=== PATIENT | male | born 1930 | race African-American/Black ===

== ENCOUNTER 2017-09-09 13:09 | Inpatient (IN) | payer MEDICARE, OTHER ==
[~2017-09-09] VITALS: Ht 182.9 cm; Wt 165.0 kg
[~2017-09-09 13:09] MED LIST: ACET-66 PO; ALIS300T PO; ALLO100T PO; ASPI-825 PO; CARV12 PO; CHL25 PO; FOSI40TA2 PO; LORA10TA7 PO; MOME17N NASAL; OXYC-158 PO; ROSU10 PO
[2017-09-09 14:30] VITALS: BP 109/55
[2017-09-09 16:00] VITALS: BP 101/53
[2017-09-09] MEDS ORDERED: TEMAZEPAM 15 MG CAPSULE PO PRN (16:15)
[2017-09-09] MEDS ORDERED: OxyCODONE HCL/ACETAMINOPHEN 5-325 MG TABLET PO PRN (16:15)
[2017-09-09] MEDS ORDERED: INFLUENZA VIRUS VACCINE QVS 2017-18 (3YR+)/PF 60 MCG/0.5 ML SYRINGE IM ONE (16:30)
[2017-09-09] MEDS ORDERED: PNEUMOCOCCAL VACCINE POLYVALENT 0.5 ML VIAL [PPSV23] IM ONE (16:30)
[2017-09-09 20:30] VITALS: BP 123/62
[2017-09-09] MEDS: DOCUSATE SODIUM 100 MG CAPSULE PO SCH (20:33)
[2017-09-09] MEDS: DRONABINOL 2.5 MG CAPSULE PO SCH (20:33)
[2017-09-09] MEDS: CARVEDILOL 3.125 MG TABLET PO SCH (20:33)
[2017-09-09] MEDS: TraZODone HCL 50 MG TABLET PO SCH (20:33)
[2017-09-09] MEDS: SENNA 187 MG TABLET PO SCH (20:33)
[2017-09-09] MEDS: ACETAMINOPHEN 500 MG TABLET PO SCH (20:34)
[2017-09-09] MEDS: FLUTICASONE PROPIONATE 50 MCG/SPRAY 16 GM NASAL SPRAY NASAL SCH (20:34)
[2017-09-09] MEDS: OXYGEN THERAPY IH SCH (20:37)
[2017-09-09] MEDS: BUDESONIDE 0.5 MG/2 ML NEB SOLUTION NEB SCH (21:04)
[2017-09-10 00:05] VITALS: BP 106/52
[2017-09-10 04:07] LABS: APPEARANCE,URINE CLOUDY (CLEAR); GLUCOSE, URINE (UA) NEGATIVE (NEGATIVE); KETONES,URINE NEGATIVE (NEGATIVE); LEUKOCYTE ESTERASE ,URINE NEGATIVE (NEGATIVE); OCCULT BLOOD,URINE MODERATE (NEGATIVE); PH,URINE 5.5 (5.0-8.0); PROTEIN,URINE SEE CONFIRM (NEGATIVE)
[2017-09-10 04:34] LABS: COARSE GRANULAR CASTS,URINE 0-2 /LPF (None Seen); SQUAMOUS EPITHELIAL CELL,UR Rare /LPF (None Seen); SULFOSALICYLIC ACID,URINE 3+ (Negative); WBC,URINE 0-2 /HPF (0-5)
[2017-09-10 06:48] LABS: BASOPHILS % (AUTO) 0.1 % (0.0-2.0); EOSINOPHILS % (AUTO) 0.4 % (1.0-6.0); HEMATOCRIT 25.4 % (41-53); HEMOGLOBIN 8.3 g/dL (13.5-17.5); LYMPHOCYTES # (AUTO) 1.1 K/uL (1.0-4.8); LYMPHOCYTES % (AUTO) 7.4 % (22.0-44.0); MEAN CORPUSCULAR HEMOGLOBIN 28.8 pg (26.0-34.0); MEAN CORPUSCULAR HGB CONC 32.7 G/dL (31.0-37.0); MEAN CORPUSCULAR VOLUME 88 fL (80-100); MONOCYTES # (AUTO) 0.7 K/uL (0.1-1.0); MONOCYTES % (AUTO) 5.2 % (2.0-9.0); NEUTROPHILS # (AUTO) 12.6 K/uL (1.8-7.7); PLATELET COUNT (AUTO) 202 K/uL (150-450); RED BLOOD CELL COUNT(AUTO) 2.88 MIL/uL (4.50-5.90); RED CELL DISTRIBUTION WIDTH 20.5 % (11.5-14.5); WHITE BLOOD COUNT (AUTO) 14.5 K/uL (4.5-11.0)
[2017-09-10 07:05] LABS: ALANINE AMINOTRANSFERASE 109 U/L (12-78); ALBUMIN 1.6 g/dL (3.4-5.0); ANION GAP 9 mmol/L (8-16); ASPARTATE AMINOTRANSFERASE 50 U/L (15-37); BILIRUBIN,TOTAL 0.4 mg/dL (0.1-1.0); CALCIUM, TOTAL 8.6 mg/dL (8.8-10.5); CARBON DIOXIDE 27 mmol/L (22-29); CHLORIDE 109 mmol/L (98-107); CREATININE 1.16 mg/dL (0.60-1.30); GLOMERULAR FILTR. RATE CALC > 60 mL/min (>60); POTASSIUM 3.3 mmol/L (3.5-5.1); SODIUM SERUM 145 mmol/L (136-145); TOTAL PROTEIN, SERUM 7.9 g/dL (6.4-8.2); UREA NITROGEN, BLOOD 23 mg/dL (7-18)
[2017-09-10 07:07] LABS: NEUTROPHILS % (AUTO) 86.9 % (40.0-70.0)
[2017-09-10 07:42] VITALS: BP_SYST 14; BP_SYST 146; BP_DIAS 70
[2017-09-10] MEDS ORDERED: POTASSIUM CHLORIDE 20 MEQ ER TABLET PO ONE (08:15)
[2017-09-10 08:24] LABS: RBC MORPHOLOGY COMMENT ABNORMAL RBC MORPH
[2017-09-10] MEDS: OXYGEN THERAPY IH SCH ×2 (08:30→20:01)
[2017-09-10] MEDS: DOCUSATE SODIUM 100 MG CAPSULE PO SCH ×2 (08:30→20:36)
[2017-09-10] MEDS: CARVEDILOL 3.125 MG TABLET PO SCH ×2 (08:30→20:37)
[2017-09-10] MEDS: DRONABINOL 2.5 MG CAPSULE PO SCH ×2 (08:30→20:37)
[2017-09-10] MEDS: FERROUS SULFATE 325 MG EC TABLET PO SCH (08:30)
[2017-09-10] MEDS: FLUTICASONE PROPIONATE 50 MCG/SPRAY 16 GM NASAL SPRAY NASAL SCH ×2 (08:30→20:35)
[2017-09-10] MEDS: PANTOPRAZOLE SODIUM 40 MG DR TABLET PO SCH (08:30)
[2017-09-10] MEDS: ACETAMINOPHEN 500 MG TABLET PO SCH ×2 (08:30→08:46)
[2017-09-10] MEDS ORDERED: POTASSIUM CHLORIDE 10% 40 MEQ/30 ML LIQUID UDCUP PO ONE (08:45)
[2017-09-10] MEDS: BUDESONIDE 0.5 MG/2 ML NEB SOLUTION NEB SCH ×2 (09:00→20:48)
[2017-09-10] MEDS ORDERED: ACETAMINOPHEN 500 MG TABLET PO PRN (15:00)
[2017-09-10 15:30] VITALS: BP 119/56
[2017-09-10 19:55] VITALS: BP 119/57
[2017-09-10] MEDS: SENNA 187 MG TABLET PO SCH (20:36)
[2017-09-10] MEDS: TraZODone HCL 50 MG TABLET PO SCH (20:37)
[2017-09-11 01:31] VITALS: BP 107/57
[2017-09-11 05:34] LABS: ANION GAP 7 mmol/L (8-16); CALCIUM, TOTAL 8.7 mg/dL (8.8-10.5); CARBON DIOXIDE 27 mmol/L (22-29); CHLORIDE 111 mmol/L (98-107); CREATININE 1.28 mg/dL (0.60-1.30); GLOMERULAR FILTR. RATE CALC > 60 mL/min (>60); POTASSIUM 3.4 mmol/L (3.5-5.1); SODIUM SERUM 145 mmol/L (136-145); UREA NITROGEN, BLOOD 24 mg/dL (7-18)
[2017-09-11 07:45] VITALS: BP 115/61
[2017-09-11] MEDS: BUDESONIDE 0.5 MG/2 ML NEB SOLUTION NEB SCH ×2 (08:11→20:40)
[2017-09-11] MEDS: FERROUS SULFATE 325 MG EC TABLET PO SCH (09:54)
[2017-09-11] MEDS: DOCUSATE SODIUM 100 MG CAPSULE PO SCH ×2 (09:55→20:16)
[2017-09-11] MEDS: CARVEDILOL 3.125 MG TABLET PO SCH ×2 (09:55→20:16)
[2017-09-11] MEDS: OXYGEN THERAPY IH SCH ×2 (09:55→20:15)
[2017-09-11] MEDS: FLUTICASONE PROPIONATE 50 MCG/SPRAY 16 GM NASAL SPRAY NASAL SCH ×2 (09:55→20:15)
[2017-09-11] MEDS: PANTOPRAZOLE SODIUM 40 MG DR TABLET PO SCH (09:55)
[2017-09-11] MEDS: DRONABINOL 2.5 MG CAPSULE PO SCH ×2 (09:56→20:16)
[2017-09-11] MEDS ORDERED: POTASSIUM CHLORIDE 10% 40 MEQ/30 ML LIQUID UDCUP PO ONE (10:30)
[2017-09-11] MEDS ORDERED: POTASSIUM CHLORIDE 20 MEQ ER TABLET PO ONE (11:30)
[2017-09-11 15:20] VITALS: BP 112/56
[2017-09-11 20:14] VITALS: BP 112/56
[2017-09-11] MEDS: TraZODone HCL 50 MG TABLET PO SCH (20:16)
[2017-09-11] MEDS: SENNA 187 MG TABLET PO SCH (20:16)
[2017-09-11 23:36] VITALS: BP 105/52
[2017-09-12 07:05] LABS: BASOPHILS % (AUTO) 0.1 % (0.0-2.0); EOSINOPHILS % (AUTO) 0.4 % (1.0-6.0); HEMOGLOBIN 7.4 g/dL (13.5-17.5); LYMPHOCYTES % (AUTO) 7.5 % (22.0-44.0); MEAN CORPUSCULAR HEMOGLOBIN 28.2 pg (26.0-34.0); MEAN CORPUSCULAR VOLUME 88 fL (80-100); MONOCYTES # (AUTO) 0.6 K/uL (0.1-1.0); NEUTROPHILS # (AUTO) 12.1 K/uL (1.8-7.7); PLATELET COUNT (AUTO) 179 K/uL (150-450); RED BLOOD CELL COUNT(AUTO) 2.62 MIL/uL (4.50-5.90); RED CELL DISTRIBUTION WIDTH 20.3 % (11.5-14.5); WHITE BLOOD COUNT (AUTO) 13.8 K/uL (4.5-11.0)
[2017-09-12 07:15] LABS: RBC MORPHOLOGY COMMENT ABNORMAL RBC MORPH
[2017-09-12 07:37] LABS: ALANINE AMINOTRANSFERASE 53 U/L (12-78); ALBUMIN 1.5 g/dL (3.4-5.0); ANION GAP 8 mmol/L (8-16); ASPARTATE AMINOTRANSFERASE 21 U/L (15-37); BILIRUBIN,TOTAL 0.3 mg/dL (0.1-1.0); CALCIUM, TOTAL 8.5 mg/dL (8.8-10.5); CARBON DIOXIDE 26 mmol/L (22-29); CHLORIDE 111 mmol/L (98-107); CREATININE 1.19 mg/dL (0.60-1.30); GLOMERULAR FILTR. RATE CALC > 60 mL/min (>60); SODIUM SERUM 145 mmol/L (136-145); TOTAL PROTEIN, SERUM 7.3 g/dL (6.4-8.2); UREA NITROGEN, BLOOD 21 mg/dL (7-18)
[2017-09-12 07:42] VITALS: BP 128/62
[2017-09-12] MEDS: FERROUS SULFATE 325 MG EC TABLET PO SCH (08:18)
[2017-09-12] MEDS: OXYGEN THERAPY IH SCH ×2 (08:18→20:18)
[2017-09-12] MEDS: DRONABINOL 2.5 MG CAPSULE PO SCH ×2 (08:38→20:16)
[2017-09-12] MEDS: DOCUSATE SODIUM 100 MG CAPSULE PO SCH ×2 (08:38→20:15)
[2017-09-12] MEDS: FLUTICASONE PROPIONATE 50 MCG/SPRAY 16 GM NASAL SPRAY NASAL SCH ×2 (08:38→20:18)
[2017-09-12] MEDS: PANTOPRAZOLE SODIUM 40 MG DR TABLET PO SCH (08:38)
[2017-09-12] MEDS: CARVEDILOL 3.125 MG TABLET PO SCH ×2 (08:38→20:15)
[2017-09-12] MEDS: BUDESONIDE 0.5 MG/2 ML NEB SOLUTION NEB SCH ×2 (09:19→21:00)
[2017-09-12] MEDS ORDERED: POTASSIUM CHLORIDE 20 MEQ ER TABLET PO PRN (10:30)
[2017-09-12] MEDS ORDERED: POTASSIUM CHL 10 MEQ/WATER 50 ML IV PRN (10:30)
[2017-09-12] MEDS: EPOETIN ALFA 10,000 UNITS/ML VIAL SQ SCH (12:14)
[2017-09-12 15:21] VITALS: BP 114/64
[2017-09-12] MEDS ORDERED: POTASSIUM CHLORIDE 10 MEQ ER TABLET PO ONE (19:30)
[2017-09-12 20:15] VITALS: BP 122/69
[2017-09-12] MEDS: SENNA 187 MG TABLET PO SCH (20:15)
[2017-09-12] MEDS: MIRTAZAPINE 15 MG TABLET PO SCH (20:17)
[2017-09-12 23:43] VITALS: BP 133/62
[2017-09-13 07:31] VITALS: BP 145/62
[2017-09-13] MEDS: BUDESONIDE 0.5 MG/2 ML NEB SOLUTION NEB SCH ×2 (09:00→21:31)
[2017-09-13] MEDS: FLUTICASONE PROPIONATE 50 MCG/SPRAY 16 GM NASAL SPRAY NASAL SCH ×2 (09:09→20:15)
[2017-09-13] MEDS: PANTOPRAZOLE SODIUM 40 MG DR TABLET PO SCH (09:09)
[2017-09-13] MEDS: ALLOPURINOL 100 MG TABLET PO SCH (09:09)
[2017-09-13] MEDS: DRONABINOL 2.5 MG CAPSULE PO SCH ×2 (09:10→20:16)
[2017-09-13] MEDS: DOCUSATE SODIUM 100 MG CAPSULE PO SCH ×2 (09:13→20:16)
[2017-09-13] MEDS: OXYGEN THERAPY IH SCH ×2 (09:14→20:15)
[2017-09-13] MEDS: CARVEDILOL 3.125 MG TABLET PO SCH ×2 (09:14→20:16)
[2017-09-13] MEDS: FERROUS SULFATE 325 MG EC TABLET PO SCH (09:14)
[2017-09-13] MEDS ORDERED: POTASSIUM CHLORIDE 20 MEQ ER TABLET PO ONE (09:30)
[2017-09-13 15:18] VITALS: BP 105/49
[2017-09-13 20:15] VITALS: BP 127/63
[2017-09-13] MEDS: MIRTAZAPINE 15 MG TABLET PO SCH (20:16)
[2017-09-13] MEDS: SENNA 187 MG TABLET PO SCH (20:16)
[2017-09-14 03:05] VITALS: BP 132/68
[2017-09-14 07:04] VITALS: BP 129/67
[2017-09-14] MEDS: OXYGEN THERAPY IH SCH ×2 (08:42→20:02)
[2017-09-14] MEDS: FERROUS SULFATE 325 MG EC TABLET PO SCH (08:42)
[2017-09-14] MEDS: DOCUSATE SODIUM 100 MG CAPSULE PO SCH ×2 (08:43→20:50)
[2017-09-14] MEDS: DRONABINOL 2.5 MG CAPSULE PO SCH ×2 (08:43→20:50)
[2017-09-14] MEDS: FLUTICASONE PROPIONATE 50 MCG/SPRAY 16 GM NASAL SPRAY NASAL SCH ×2 (08:43→20:52)
[2017-09-14] MEDS: ALLOPURINOL 100 MG TABLET PO SCH (08:43)
[2017-09-14] MEDS: PANTOPRAZOLE SODIUM 40 MG DR TABLET PO SCH (08:44)
[2017-09-14] MEDS: CARVEDILOL 3.125 MG TABLET PO SCH ×2 (08:44→20:51)
[2017-09-14] MEDS: EPOETIN ALFA 10,000 UNITS/ML VIAL SQ SCH (08:45)
[2017-09-14] MEDS: BUDESONIDE 0.5 MG/2 ML NEB SOLUTION NEB SCH ×2 (10:59→21:26)
[2017-09-14 15:00] VITALS: BP 113/58
[2017-09-14 20:17] VITALS: BP 127/62
[2017-09-14] MEDS: SENNA 187 MG TABLET PO SCH (20:51)
[2017-09-14] MEDS: MIRTAZAPINE 15 MG TABLET PO SCH (20:51)
[2017-09-15] VITALS: BP 132/70
[2017-09-15 07:15] VITALS: BP 142/72
[2017-09-15] MEDS: FERROUS SULFATE 325 MG EC TABLET PO SCH (08:21)
[2017-09-15] MEDS: OXYGEN THERAPY IH SCH ×2 (08:21→20:46)
[2017-09-15] MEDS: FLUTICASONE PROPIONATE 50 MCG/SPRAY 16 GM NASAL SPRAY NASAL SCH ×2 (08:46→21:14)
[2017-09-15] MEDS: ALLOPURINOL 100 MG TABLET PO SCH (08:46)
[2017-09-15] MEDS: POLYETHYLENE GLYCOL 3350 17 GM PACKET PO SCH (08:46)
[2017-09-15] MEDS: PANTOPRAZOLE SODIUM 40 MG DR TABLET PO SCH (08:47)
[2017-09-15] MEDS: CARVEDILOL 3.125 MG TABLET PO SCH ×2 (08:47→21:10)
[2017-09-15] MEDS: DRONABINOL 2.5 MG CAPSULE PO SCH ×2 (08:47→21:11)
[2017-09-15] MEDS: DOCUSATE SODIUM 100 MG CAPSULE PO SCH ×2 (08:47→21:10)
[2017-09-15] MEDS: BUDESONIDE 0.5 MG/2 ML NEB SOLUTION NEB SCH ×2 (08:56→21:36)
[2017-09-15] MEDS ORDERED: POTASSIUM CHLORIDE 20 MEQ ER TABLET PO ONE (09:00)
[2017-09-15 15:27] VITALS: BP 123/53
[2017-09-15 21:07] VITALS: BP 120/63
[2017-09-15] MEDS: SENNA 187 MG TABLET PO SCH (21:11)
[2017-09-15] MEDS: MIRTAZAPINE 15 MG TABLET PO SCH (21:14)
[2017-09-15 23:35] VITALS: BP 121/67
[2017-09-16 07:14] VITALS: BP 126/63
[2017-09-16 07:36] LABS: EOSINOPHILS % (AUTO) 0.8 % (1.0-6.0); HEMATOCRIT 25.6 % (41-53); HEMOGLOBIN 8.3 g/dL (13.5-17.5); LYMPHOCYTES # (AUTO) 1.1 K/uL (1.0-4.8); LYMPHOCYTES % (AUTO) 6.1 % (22.0-44.0); MEAN CORPUSCULAR HGB CONC 32.3 G/dL (31.0-37.0); MEAN CORPUSCULAR VOLUME 90 fL (80-100); MONOCYTES # (AUTO) 0.8 K/uL (0.1-1.0); MONOCYTES % (AUTO) 4.2 % (2.0-9.0); NEUTROPHILS # (AUTO) 16.3 K/uL (1.8-7.7); PLATELET COUNT (AUTO) 168 K/uL (150-450); RED BLOOD CELL COUNT(AUTO) 2.86 MIL/uL (4.50-5.90); RED CELL DISTRIBUTION WIDTH 21.8 % (11.5-14.5); WHITE BLOOD COUNT (AUTO) 18.4 K/uL (4.5-11.0)
[2017-09-16 07:42] LABS: NEUTROPHILS % (AUTO) 88.9 % (40.0-70.0)
[2017-09-16 07:49] LABS: ALANINE AMINOTRANSFERASE 25 U/L (12-78); ALBUMIN 1.8 g/dL (3.4-5.0); ANION GAP 9 mmol/L (8-16); ASPARTATE AMINOTRANSFERASE 15 U/L (15-37); BILIRUBIN,TOTAL 0.4 mg/dL (0.1-1.0); CALCIUM, TOTAL 8.8 mg/dL (8.8-10.5); CARBON DIOXIDE 26 mmol/L (22-29); CHLORIDE 110 mmol/L (98-107); CREATININE 1.19 mg/dL (0.60-1.30); GLOMERULAR FILTR. RATE CALC > 60 mL/min (>60); SODIUM SERUM 145 mmol/L (136-145); TOTAL PROTEIN, SERUM 7.5 g/dL (6.4-8.2); UREA NITROGEN, BLOOD 17 mg/dL (7-18)
[2017-09-16 07:50] LABS: POTASSIUM 2.6 mmol/L (3.5-5.1)
[2017-09-16 07:58] LABS: RBC MORPHOLOGY COMMENT DIMORPHIC RBC
[2017-09-16] MEDS: FERROUS SULFATE 325 MG EC TABLET PO SCH (08:44)
[2017-09-16] MEDS: OXYGEN THERAPY IH SCH ×2 (08:44→20:54)
[2017-09-16] MEDS: CARVEDILOL 3.125 MG TABLET PO SCH ×2 (08:45→21:36)
[2017-09-16] MEDS: DOCUSATE SODIUM 100 MG CAPSULE PO SCH ×2 (08:45→21:37)
[2017-09-16] MEDS: FLUTICASONE PROPIONATE 50 MCG/SPRAY 16 GM NASAL SPRAY NASAL SCH ×2 (08:45→21:37)
[2017-09-16] MEDS: ALLOPURINOL 100 MG TABLET PO SCH (08:45)
[2017-09-16] MEDS: POTASSIUM CHLORIDE 20 MEQ ER TABLET PO SCH (08:45)
[2017-09-16] MEDS: PANTOPRAZOLE SODIUM 40 MG DR TABLET PO SCH (08:45)
[2017-09-16] MEDS: EPOETIN ALFA 10,000 UNITS/ML VIAL SQ SCH (08:46)
[2017-09-16] MEDS: POLYETHYLENE GLYCOL 3350 17 GM PACKET PO SCH (08:46)
[2017-09-16] MEDS: DRONABINOL 2.5 MG CAPSULE PO SCH ×2 (08:47→21:36)
[2017-09-16] MEDS: BUDESONIDE 0.5 MG/2 ML NEB SOLUTION NEB SCH ×2 (09:00→22:03)
[2017-09-16] MEDS ORDERED: POTASSIUM CHLORIDE 20 MEQ ER TABLET PO SCH (09:00)
[2017-09-16 16:53] VITALS: BP 109/53
[2017-09-16] MEDS: LEVOFLOXACIN 500 MG TABLET PO SCH (17:10)
[2017-09-16] MEDS ORDERED: POTASSIUM CHLORIDE 20 MEQ ER TABLET PO ONE ×2 (17:45)
[2017-09-16 21:34] VITALS: BP 128/66
[2017-09-16] MEDS: SENNA 187 MG TABLET PO SCH (21:36)
[2017-09-16] MEDS: MIRTAZAPINE 15 MG TABLET PO SCH (21:37)
[2017-09-16] MEDS ORDERED: 0.9% SODIUM CHLORIDE 5 ML NEB SOLUTION NEB ONE (21:55)
[2017-09-16 23:59] VITALS: BP 111/57
[2017-09-17 07:07] VITALS: BP 135/67
[2017-09-17 07:17] LABS: HEMOGLOBIN 8.1 g/dL (13.5-17.5); LYMPHOCYTES # (AUTO) 1.2 K/uL (1.0-4.8); LYMPHOCYTES % (AUTO) 7.3 % (22.0-44.0); MEAN CORPUSCULAR HEMOGLOBIN 29.1 pg (26.0-34.0); MEAN CORPUSCULAR HGB CONC 32.2 G/dL (31.0-37.0); MEAN CORPUSCULAR VOLUME 90 fL (80-100); MONOCYTES # (AUTO) 0.7 K/uL (0.1-1.0); MONOCYTES % (AUTO) 4.1 % (2.0-9.0); NEUTROPHILS # (AUTO) 14.9 K/uL (1.8-7.7); PLATELET COUNT (AUTO) 149 K/uL (150-450); RED BLOOD CELL COUNT(AUTO) 2.77 MIL/uL (4.50-5.90); RED CELL DISTRIBUTION WIDTH 22.2 % (11.5-14.5)
[2017-09-17 07:18] LABS: NEUTROPHILS % (AUTO) 87.6 % (40.0-70.0)
[2017-09-17 07:24] LABS: ANION GAP 6 mmol/L (8-16); CALCIUM, TOTAL 8.8 mg/dL (8.8-10.5); CARBON DIOXIDE 28 mmol/L (22-29); CHLORIDE 112 mmol/L (98-107); CREATININE 1.34 mg/dL (0.60-1.30); GLOMERULAR FILTR. RATE CALC > 60 mL/min (>60); SODIUM SERUM 146 mmol/L (136-145); UREA NITROGEN, BLOOD 15 mg/dL (7-18)
[2017-09-17] MEDS: FERROUS SULFATE 325 MG EC TABLET PO SCH (07:38)
[2017-09-17] MEDS: OXYGEN THERAPY IH SCH ×2 (07:38→20:39)
[2017-09-17 07:46] LABS: POTASSIUM 2.8 mmol/L (3.5-5.1)
[2017-09-17] MEDS: POTASSIUM CHLORIDE 20 MEQ ER TABLET PO SCH ×5 (08:52→09:58)
[2017-09-17] MEDS: PANTOPRAZOLE SODIUM 40 MG DR TABLET PO SCH (08:52)
[2017-09-17] MEDS: CARVEDILOL 3.125 MG TABLET PO SCH ×2 (08:52→20:39)
[2017-09-17] MEDS: ALLOPURINOL 100 MG TABLET PO SCH (08:53)
[2017-09-17] MEDS: DRONABINOL 2.5 MG CAPSULE PO SCH ×2 (08:53→20:40)
[2017-09-17 08:54] LABS: RBC MORPHOLOGY COMMENT ABNORMAL RBC MORPH
[2017-09-17] MEDS: DOCUSATE SODIUM 100 MG CAPSULE PO SCH ×2 (08:54→20:40)
[2017-09-17] MEDS: POLYETHYLENE GLYCOL 3350 17 GM PACKET PO SCH (08:54)
[2017-09-17] MEDS: FLUTICASONE PROPIONATE 50 MCG/SPRAY 16 GM NASAL SPRAY NASAL SCH ×2 (08:54→20:39)
[2017-09-17] MEDS: LEVOFLOXACIN 500 MG TABLET PO SCH (08:56)
[2017-09-17] MEDS ORDERED: POTASSIUM CHLORIDE 20 MEQ ER TABLET PO ONE ×2 (09:00→11:45)
[2017-09-17] MEDS ORDERED: LACTULOSE 20 GM/30 ML SOLUTION UDCUP PO ONE (10:30)
[2017-09-17] MEDS: BUDESONIDE 0.5 MG/2 ML NEB SOLUTION NEB SCH ×2 (10:42→21:52)
[2017-09-17] MEDS ORDERED: POTASSIUM CHL 10 MEQ/WATER 50 ML IV SCH (11:15)
[2017-09-17] MEDS ORDERED: POTASSIUM CHLORIDE 10% 40 MEQ/30 ML LIQUID UDCUP PO ONE (12:00)
[2017-09-17] MEDS ORDERED: POTASSIUM CHL 10 MEQ/WATER 50 ML IV PRN (12:15)
[2017-09-17 15:30] VITALS: BP 101/61
[2017-09-17 16:54] LABS: APPEARANCE,URINE CLOUDY (CLEAR); GLUCOSE, URINE (UA) NEGATIVE (NEGATIVE); KETONES,URINE NEGATIVE (NEGATIVE); LEUKOCYTE ESTERASE ,URINE NEGATIVE (NEGATIVE); OCCULT BLOOD,URINE NEGATIVE (NEGATIVE); PROTEIN,URINE SEE CONFIRM (NEGATIVE)
[2017-09-17 17:05] LABS: AMORPHOUS SEDIMENT,UR Moderate /LPF (None Seen); CALCIUM OXALATE CRYSTALS,UR Few /LPF (None Seen); RBC,URINE 0-2 /HPF (0-2); SQUAMOUS EPITHELIAL CELL,UR Few /LPF (None Seen); SULFOSALICYLIC ACID,URINE 3+ (Negative); WBC,URINE 0-2 /HPF (0-5)
[2017-09-17] MEDS ORDERED: DEXTROSE 5%-0.45% SODIUM CHL 500 ML IV ONE (18:45)
[2017-09-17 20:35] VITALS: BP 92/52
[2017-09-17] MEDS: SENNA 187 MG TABLET PO SCH (20:39)
[2017-09-17] MEDS: MIRTAZAPINE 15 MG TABLET PO SCH (20:40)
[2017-09-17 23:59] VITALS: BP 123/63
[2017-09-18 07:10] VITALS: BP 125/66
[2017-09-18] MEDS: FERROUS SULFATE 325 MG EC TABLET PO SCH (08:35)
[2017-09-18] MEDS: OXYGEN THERAPY IH SCH ×2 (08:36→20:57)
[2017-09-18] MEDS: DRONABINOL 2.5 MG CAPSULE PO SCH ×2 (08:38→21:16)
[2017-09-18] MEDS: EPOETIN ALFA 10,000 UNITS/ML VIAL SQ SCH (08:38)
[2017-09-18] MEDS: LEVOFLOXACIN 500 MG TABLET PO SCH (08:38)
[2017-09-18] MEDS: FLUTICASONE PROPIONATE 50 MCG/SPRAY 16 GM NASAL SPRAY NASAL SCH ×2 (08:38→21:17)
[2017-09-18] MEDS: PANTOPRAZOLE SODIUM 40 MG DR TABLET PO SCH (08:38)
[2017-09-18] MEDS: POLYETHYLENE GLYCOL 3350 17 GM PACKET PO SCH (08:39)
[2017-09-18] MEDS: DOCUSATE SODIUM 100 MG CAPSULE PO SCH ×2 (08:39→21:15)
[2017-09-18] MEDS: CARVEDILOL 3.125 MG TABLET PO SCH (08:39)
[2017-09-18] MEDS: POTASSIUM CHLORIDE 10% 40 MEQ/30 ML LIQUID UDCUP PO SCH (08:40)
[2017-09-18] MEDS: ALLOPURINOL 100 MG TABLET PO SCH (08:41)
[2017-09-18] MEDS: BUDESONIDE 0.5 MG/2 ML NEB SOLUTION NEB SCH ×2 (09:00→21:44)
[2017-09-18] MEDS ORDERED: ERGOCALCIFEROL (VIT D2) 50,000 UNITS CAPSULE PO SCH (09:00)
[2017-09-18 15:58] VITALS: BP 108/57
[2017-09-18 21:14] VITALS: BP 127/64
[2017-09-18] MEDS: MIRTAZAPINE 15 MG TABLET PO SCH (21:16)
[2017-09-18] MEDS: SENNA 187 MG TABLET PO SCH (21:16)
[2017-09-19] VITALS: BP 135/62
[2017-09-19 06:29] LABS: EOSINOPHILS % (AUTO) 0.7 % (1.0-6.0); HEMATOCRIT 25.9 % (41-53); HEMOGLOBIN 8.3 g/dL (13.5-17.5); LYMPHOCYTES # (AUTO) 1.2 K/uL (1.0-4.8); LYMPHOCYTES % (AUTO) 7.5 % (22.0-44.0); MEAN CORPUSCULAR HEMOGLOBIN 29.3 pg (26.0-34.0); MEAN CORPUSCULAR VOLUME 91 fL (80-100); MONOCYTES # (AUTO) 0.6 K/uL (0.1-1.0); PLATELET COUNT (AUTO) 145 K/uL (150-450); RED BLOOD CELL COUNT(AUTO) 2.83 MIL/uL (4.50-5.90); RED CELL DISTRIBUTION WIDTH 22.7 % (11.5-14.5); WHITE BLOOD COUNT (AUTO) 15.9 K/uL (4.5-11.0)
[2017-09-19 06:54] LABS: NEUTROPHILS % (AUTO) 87.8 % (40.0-70.0); RBC MORPHOLOGY COMMENT ABNORMAL RBC MORPH
[2017-09-19 07:00] LABS: ANION GAP 7 mmol/L (8-16); CALCIUM, TOTAL 8.8 mg/dL (8.8-10.5); CARBON DIOXIDE 28 mmol/L (22-29); CHLORIDE 112 mmol/L (98-107); CREATININE 1.29 mg/dL (0.60-1.30); GLOMERULAR FILTR. RATE CALC > 60 mL/min (>60); POTASSIUM 3.1 mmol/L (3.5-5.1); SODIUM SERUM 147 mmol/L (136-145); UREA NITROGEN, BLOOD 13 mg/dL (7-18)
[2017-09-19 07:12] VITALS: BP 122/64
[2017-09-19] MEDS: BUDESONIDE 0.5 MG/2 ML NEB SOLUTION NEB SCH ×2 (08:31→20:44)
[2017-09-19] MEDS: ALLOPURINOL 100 MG TABLET PO SCH (08:43)
[2017-09-19] MEDS: DOCUSATE SODIUM 100 MG CAPSULE PO SCH ×2 (08:43→21:36)
[2017-09-19] MEDS: DRONABINOL 2.5 MG CAPSULE PO SCH ×2 (08:43→21:36)
[2017-09-19] MEDS: FLUTICASONE PROPIONATE 50 MCG/SPRAY 16 GM NASAL SPRAY NASAL SCH ×2 (08:43→21:37)
[2017-09-19] MEDS: POLYETHYLENE GLYCOL 3350 17 GM PACKET PO SCH (08:43)
[2017-09-19] MEDS: PANTOPRAZOLE SODIUM 40 MG DR TABLET PO SCH (08:43)
[2017-09-19] MEDS: OXYGEN THERAPY IH SCH ×2 (08:43→20:37)
[2017-09-19] MEDS: LEVOFLOXACIN 500 MG TABLET PO SCH (08:44)
[2017-09-19] MEDS: FERROUS SULFATE 325 MG EC TABLET PO SCH (08:44)
[2017-09-19] MEDS: POTASSIUM CHLORIDE 10% 40 MEQ/30 ML LIQUID UDCUP PO SCH (08:58)
[2017-09-19] MEDS ORDERED: POTASSIUM CHL 40 MEQ/D5-0.45NS 1,000 ML IV ONE (12:00)
[2017-09-19 12:32] LABS: INR 1.3 (0.9-1.1)
[2017-09-19] MEDS ORDERED: AZITHROMYCIN 500 MG/NS 250 ML IV SCH (13:00)
[2017-09-19 15:24] VITALS: BP 104/56
[2017-09-19] MEDS ORDERED: SODIUM CHLORIDE 0.9% 250 ML IV ONE (16:53)
[2017-09-19] MEDS: CefTRIAXone 1 GM/DEXTROSE 50 ML IV SCH (17:47)
[2017-09-19] MEDS ORDERED: VANCOMYCIN HCL 1.25 GM in DEXTROSE 5%-WATER 250 ML IV ONE (20:30)
[2017-09-19] MEDS ORDERED: MIRTAZAPINE 15 MG TABLET PO SCH (21:00)
[2017-09-19 21:25] VITALS: BP 146/68
[2017-09-19] MEDS: SENNA 187 MG TABLET PO SCH (21:36)
[2017-09-19] MEDS: PIPERACILLIN/TAZO 3.375 GM/D5W 50 ML IV SCH (21:54)
[2017-09-19 23:29] VITALS: BP 118/56
[2017-09-20] MEDS: PIPERACILLIN/TAZO 3.375 GM/D5W 50 ML IV SCH ×4 (02:19→23:22)
[2017-09-20 07:30] VITALS: BP 117/61
[2017-09-20 07:32] LABS: CALCIUM, TOTAL 8.8 mg/dL (8.8-10.5); CREATININE 1.42 mg/dL (0.60-1.30)
[2017-09-20] MEDS ORDERED: VANCOMYCIN HCL 1.25 GM in DEXTROSE 5%-WATER 250 ML IV SCH (08:00)
[2017-09-20] MEDS: POTASSIUM CHLORIDE 10% 40 MEQ/30 ML LIQUID UDCUP PO SCH ×2 (08:40→09:00)
[2017-09-20] MEDS: FLUTICASONE PROPIONATE 50 MCG/SPRAY 16 GM NASAL SPRAY NASAL SCH ×2 (08:40→20:46)
[2017-09-20] MEDS: OXYGEN THERAPY IH SCH ×2 (08:40→20:15)
[2017-09-20] MEDS: POLYETHYLENE GLYCOL 3350 17 GM PACKET PO SCH (08:41)
[2017-09-20] MEDS: DOCUSATE SODIUM 100 MG CAPSULE PO SCH ×2 (08:41→20:45)
[2017-09-20] MEDS: PANTOPRAZOLE SODIUM 40 MG DR TABLET PO SCH (08:41)
[2017-09-20] MEDS: ALLOPURINOL 100 MG TABLET PO SCH (08:41)
[2017-09-20] MEDS: DRONABINOL 2.5 MG CAPSULE PO SCH ×2 (08:41→20:45)
[2017-09-20] MEDS: FERROUS SULFATE 325 MG EC TABLET PO SCH (08:41)
[2017-09-20] MEDS: EPOETIN ALFA 10,000 UNITS/ML VIAL SQ SCH (08:43)
[2017-09-20] MEDS: BUDESONIDE 0.5 MG/2 ML NEB SOLUTION NEB SCH ×2 (10:14→20:30)
[2017-09-20] MEDS: CefTRIAXone 1 GM/DEXTROSE 50 ML IV SCH (12:00)
[2017-09-20] MEDS ORDERED: VANCOMYCIN HCL 1 GM/D5% WATER 200 ML IV ONE (13:00)
[2017-09-20 15:15] VITALS: BP 118/60
[2017-09-20] MEDS: 0.9% SODIUM CHLORIDE 10 ML SYRINGE IVP SCH ×2 (15:50→23:22)
[2017-09-20] MEDS: SENNA 187 MG TABLET PO SCH (20:45)
[2017-09-20] MEDS: MIRTAZAPINE 15 MG TABLET PO SCH (20:45)
[2017-09-21 00:24] VITALS: BP 120/65
[2017-09-21] MEDS: PIPERACILLIN/TAZO 3.375 GM/D5W 50 ML IV SCH ×4 (05:07→23:43)
[2017-09-21] MEDS: VANCOMYCIN HCL 1 GM/D5% WATER 200 ML IV SCH (05:14)
[2017-09-21 06:02] LABS: CALCIUM, TOTAL 8.5 mg/dL (8.8-10.5); CREATININE 1.41 mg/dL (0.60-1.30)
[2017-09-21 06:40] LABS: POTASSIUM 2.6 mmol/L (3.5-5.1)
[2017-09-21] MEDS: OXYGEN THERAPY IH SCH ×2 (07:26→20:20)
[2017-09-21] MEDS: BUDESONIDE 0.5 MG/2 ML NEB SOLUTION NEB SCH ×2 (07:27→19:29)
[2017-09-21] MEDS ORDERED: VANCOMYCIN HCL 1 GM/D5% WATER 200 ML IV SCH (08:00)
[2017-09-21 08:21] VITALS: BP 131/70
[2017-09-21] MEDS: POTASSIUM CHLORIDE 10% 40 MEQ/30 ML LIQUID UDCUP PO SCH ×3 (08:53→21:20)
[2017-09-21] MEDS: 0.9% SODIUM CHLORIDE 10 ML SYRINGE IVP SCH ×3 (08:55→23:43)
[2017-09-21] MEDS ORDERED: POTASSIUM CHLORIDE 20 MEQ ER TABLET PO SCH (09:00)
[2017-09-21] MEDS: POLYETHYLENE GLYCOL 3350 17 GM PACKET PO SCH ×2 (09:00→09:44)
[2017-09-21] MEDS: FERROUS SULFATE 325 MG EC TABLET PO SCH (09:44)
[2017-09-21] MEDS: ALLOPURINOL 100 MG TABLET PO SCH (09:44)
[2017-09-21] MEDS: DOCUSATE SODIUM 100 MG CAPSULE PO SCH ×2 (09:44→21:19)
[2017-09-21] MEDS: DRONABINOL 2.5 MG CAPSULE PO SCH ×2 (09:44→21:20)
[2017-09-21] MEDS: FLUTICASONE PROPIONATE 50 MCG/SPRAY 16 GM NASAL SPRAY NASAL SCH ×2 (09:44→21:19)
[2017-09-21] MEDS: PANTOPRAZOLE SODIUM 40 MG DR TABLET PO SCH (09:44)
[2017-09-21 15:08] VITALS: BP 113/61
[2017-09-21] MEDS: MIRTAZAPINE 15 MG TABLET PO SCH (21:19)
[2017-09-21] MEDS: SENNA 187 MG TABLET PO SCH (21:20)
[2017-09-21] MEDS ORDERED: POTASSIUM CHL 40 MEQ/D5-0.45NS 1,000 ML IV ONE (21:45)
[2017-09-21] MEDS ORDERED: SODIUM CHLORIDE 0.9% 250 ML IV ONE (23:46)
[2017-09-22 01:34] VITALS: BP 125/61
[2017-09-22] MEDS: PIPERACILLIN/TAZO 3.375 GM/D5W 50 ML IV SCH ×4 (04:49→23:17)
[2017-09-22] MEDS: VANCOMYCIN HCL 1 GM/D5% WATER 200 ML IV SCH (06:27)
[2017-09-22 06:51] LABS: BASOPHILS % (AUTO) 0.2 % (0.0-2.0); EOSINOPHILS % (AUTO) 0.9 % (1.0-6.0); HEMATOCRIT 25.7 % (41-53); HEMOGLOBIN 8.4 g/dL (13.5-17.5); LYMPHOCYTES # (AUTO) 1.4 K/uL (1.0-4.8); MEAN CORPUSCULAR HEMOGLOBIN 29.9 pg (26.0-34.0); MEAN CORPUSCULAR HGB CONC 32.7 G/dL (31.0-37.0); MEAN CORPUSCULAR VOLUME 92 fL (80-100); MONOCYTES # (AUTO) 0.7 K/uL (0.1-1.0); MONOCYTES % (AUTO) 4.9 % (2.0-9.0); NEUTROPHILS # (AUTO) 12.9 K/uL (1.8-7.7); PLATELET COUNT (AUTO) 122 K/uL (150-450); RED CELL DISTRIBUTION WIDTH 23.7 % (11.5-14.5); WHITE BLOOD COUNT (AUTO) 15.2 K/uL (4.5-11.0)
[2017-09-22 07:02] LABS: ALBUMIN 1.7 g/dL (3.4-5.0); BILIRUBIN,TOTAL 0.4 mg/dL (0.1-1.0); CALCIUM, TOTAL 8.5 mg/dL (8.8-10.5); CREATININE 1.45 mg/dL (0.60-1.30); TOTAL PROTEIN, SERUM 6.8 g/dL (6.4-8.2)
[2017-09-22 07:09] LABS: POTASSIUM 2.9 mmol/L (3.5-5.1)
[2017-09-22 07:39] VITALS: BP 139/69
[2017-09-22 08:03] LABS: RBC MORPHOLOGY COMMENT ABNORMAL RBC MORPH
[2017-09-22] MEDS: EPOETIN ALFA 10,000 UNITS/ML VIAL SQ SCH (08:15)
[2017-09-22] MEDS: MULTIVITAMINS WITH MINERALS, THERAPEUTIC TABLET PO SCH (08:15)
[2017-09-22] MEDS: DRONABINOL 2.5 MG CAPSULE PO SCH ×2 (08:15→20:31)
[2017-09-22] MEDS: PANTOPRAZOLE SODIUM 40 MG DR TABLET PO SCH (08:15)
[2017-09-22] MEDS: FLUTICASONE PROPIONATE 50 MCG/SPRAY 16 GM NASAL SPRAY NASAL SCH ×2 (08:16→20:32)
[2017-09-22] MEDS: ALLOPURINOL 100 MG TABLET PO SCH (08:16)
[2017-09-22] MEDS: FERROUS SULFATE 325 MG EC TABLET PO SCH (08:18)
[2017-09-22] MEDS: OXYGEN THERAPY IH SCH ×2 (08:18→20:32)
[2017-09-22] MEDS: POLYETHYLENE GLYCOL 3350 17 GM PACKET PO SCH (08:19)
[2017-09-22] MEDS: DOCUSATE SODIUM 100 MG CAPSULE PO SCH ×2 (08:19→20:31)
[2017-09-22] MEDS: POTASSIUM CHLORIDE 10% 40 MEQ/30 ML LIQUID UDCUP PO SCH (08:24)
[2017-09-22] MEDS: 0.9% SODIUM CHLORIDE 10 ML SYRINGE IVP SCH ×3 (08:39→23:17)
[2017-09-22] MEDS: POTASSIUM CHL 10 MEQ/WATER 50 ML IV PRN ×3 (11:18→15:05)
[2017-09-22] MEDS: BUDESONIDE 0.5 MG/2 ML NEB SOLUTION NEB SCH ×2 (12:30→20:33)
[2017-09-22] MEDS ORDERED: POTASSIUM CHL 40 MEQ/D5-0.45NS 1,000 ML IV ONE (14:00)
[2017-09-22 15:51] VITALS: BP 95/55
[2017-09-22] MEDS ORDERED: POTASSIUM CHL 20 MEQ/0.45% NS 1,000 ML IV SCH (16:45)
[2017-09-22 19:16] LABS: CALCIUM, TOTAL 8.4 mg/dL (8.8-10.5); CREATININE 1.5 mg/dL (0.60-1.30); POTASSIUM 3.3 mmol/L (3.5-5.1)
[2017-09-22 19:20] LABS: MAGNESIUM 1.6 mg/dL (1.80-2.40); PHOSPHORUS 2.6 mg/dL (2.5-4.9)
[2017-09-22] MEDS ORDERED: POTASSIUM CHLORIDE 10% 40 MEQ/30 ML LIQUID UDCUP PO ONE (20:15)
[2017-09-22] MEDS ORDERED: MAGNESIUM SULFATE 2 GM in DEXTROSE 5%-WATER 50 ML IV ONE (20:15)
[2017-09-22] MEDS: MIRTAZAPINE 15 MG TABLET PO SCH (20:31)
[2017-09-22] MEDS: SENNA 187 MG TABLET PO SCH (20:31)
[2017-09-22 23:58] VITALS: BP 118/64
[2017-09-23] MEDS: PIPERACILLIN/TAZO 3.375 GM/D5W 50 ML IV SCH ×4 (04:36→23:09)
[2017-09-23] MEDS: VANCOMYCIN HCL 1 GM/D5% WATER 200 ML IV SCH (05:06)
[2017-09-23 07:16] LABS: CALCIUM, TOTAL 8.4 mg/dL (8.8-10.5); CREATININE 1.65 mg/dL (0.60-1.30); MAGNESIUM 1.8 mg/dL (1.80-2.40); PHOSPHORUS 2.7 mg/dL (2.5-4.9)
[2017-09-23 07:19] LABS: POTASSIUM 2.7 mmol/L (3.5-5.1)
[2017-09-23 07:42] VITALS: BP 122/75
[2017-09-23] MEDS ORDERED: POTASSIUM CHLORIDE 10% 40 MEQ/30 ML LIQUID UDCUP PO ONE (07:45)
[2017-09-23] MEDS: POTASSIUM CHL 10 MEQ/WATER 50 ML IV SCH ×7 (08:42→22:50)
[2017-09-23] MEDS: PANTOPRAZOLE SODIUM 40 MG DR TABLET PO SCH (08:44)
[2017-09-23] MEDS: FERROUS SULFATE 325 MG EC TABLET PO SCH (08:44)
[2017-09-23] MEDS: ALLOPURINOL 100 MG TABLET PO SCH (08:44)
[2017-09-23] MEDS: DRONABINOL 2.5 MG CAPSULE PO SCH ×2 (08:44→20:12)
[2017-09-23] MEDS: MULTIVITAMINS WITH MINERALS, THERAPEUTIC TABLET PO SCH (08:44)
[2017-09-23] MEDS: 0.9% SODIUM CHLORIDE 10 ML SYRINGE IVP SCH ×3 (08:46→23:10)
[2017-09-23] MEDS: OXYGEN THERAPY IH SCH ×2 (08:46→20:12)
[2017-09-23] MEDS: FLUTICASONE PROPIONATE 50 MCG/SPRAY 16 GM NASAL SPRAY NASAL SCH ×2 (08:47→20:12)
[2017-09-23] MEDS: BUDESONIDE 0.5 MG/2 ML NEB SOLUTION NEB SCH ×2 (08:49→21:32)
[2017-09-23] MEDS: DOCUSATE SODIUM 100 MG CAPSULE PO SCH ×2 (08:49→20:13)
[2017-09-23] MEDS: POLYETHYLENE GLYCOL 3350 17 GM PACKET PO SCH (09:00)
[2017-09-23 15:48] VITALS: BP 133/65
[2017-09-23] MEDS: MIRTAZAPINE 15 MG TABLET PO SCH (20:12)
[2017-09-23] MEDS: SENNA 187 MG TABLET PO SCH (20:13)
[2017-09-23 23:45] VITALS: BP 155/65
[2017-09-24] MEDS: PIPERACILLIN/TAZO 3.375 GM/D5W 50 ML IV SCH ×4 (04:46→23:03)
[2017-09-24] MEDS: VANCOMYCIN HCL 1 GM/D5% WATER 200 ML IV SCH (05:21)
[2017-09-24] MEDS ORDERED: SODIUM CHLORIDE 0.9% 250 ML IV ONE ×2 (05:41→22:56)
[2017-09-24 06:58] LABS: CALCIUM, TOTAL 8.2 mg/dL (8.8-10.5); CREATININE 1.54 mg/dL (0.60-1.30); MAGNESIUM 1.9 mg/dL (1.80-2.40); PHOSPHORUS 2.9 mg/dL (2.5-4.9); POTASSIUM 3.2 mmol/L (3.5-5.1)
[2017-09-24 07:07] VITALS: BP 138/71
[2017-09-24] MEDS: FERROUS SULFATE 325 MG EC TABLET PO SCH (07:34)
[2017-09-24] MEDS: OXYGEN THERAPY IH SCH ×2 (07:34→21:13)
[2017-09-24] MEDS: MULTIVITAMINS WITH MINERALS, THERAPEUTIC TABLET PO SCH (07:50)
[2017-09-24] MEDS: EPOETIN ALFA 10,000 UNITS/ML VIAL SQ SCH (07:50)
[2017-09-24] MEDS: 0.9% SODIUM CHLORIDE 10 ML SYRINGE IVP SCH ×3 (07:50→23:23)
[2017-09-24] MEDS: DRONABINOL 2.5 MG CAPSULE PO SCH ×3 (07:50→21:14)
[2017-09-24] MEDS: ALLOPURINOL 100 MG TABLET PO SCH (07:50)
[2017-09-24] MEDS: POLYETHYLENE GLYCOL 3350 17 GM PACKET PO SCH ×2 (07:50→08:41)
[2017-09-24] MEDS: DOCUSATE SODIUM 100 MG CAPSULE PO SCH ×2 (07:50→21:00)
[2017-09-24] MEDS: PANTOPRAZOLE SODIUM 40 MG DR TABLET PO SCH (07:51)
[2017-09-24] MEDS: FLUTICASONE PROPIONATE 50 MCG/SPRAY 16 GM NASAL SPRAY NASAL SCH ×2 (07:51→21:14)
[2017-09-24] MEDS: POTASSIUM CHL 10 MEQ/WATER 50 ML IV SCH ×3 (09:15→10:45)
[2017-09-24] MEDS: BUDESONIDE 0.5 MG/2 ML NEB SOLUTION NEB SCH ×2 (09:52→20:38)
[2017-09-24 16:29] VITALS: BP 132/70
[2017-09-24 16:36] LABS: POTASSIUM U,24HR CALC 28 mmol/24H (25-150)
[2017-09-24] MEDS: SENNA 187 MG TABLET PO SCH (21:00)
[2017-09-24] MEDS: MIRTAZAPINE 15 MG TABLET PO SCH ×2 (21:00→21:14)
[2017-09-24 23:32] VITALS: BP 138/77
[2017-09-25] MEDS: PIPERACILLIN/TAZO 3.375 GM/D5W 50 ML IV SCH ×4 (04:11→23:40)
[2017-09-25] MEDS: VANCOMYCIN HCL 1 GM/D5% WATER 200 ML IV SCH (06:01)
[2017-09-25 06:17] LABS: CALCIUM, TOTAL 8.4 mg/dL (8.8-10.5); CREATININE 1.5 mg/dL (0.60-1.30); MAGNESIUM 1.7 mg/dL (1.80-2.40); PHOSPHORUS 2.9 mg/dL (2.5-4.9)
[2017-09-25 06:46] LABS: POTASSIUM 2.6 mmol/L (3.5-5.1)
[2017-09-25] MEDS ORDERED: PROPOFOL 1% 20 ML VIAL IVP ONE (07:00)
[2017-09-25] MEDS: FERROUS SULFATE 325 MG EC TABLET PO SCH (07:30)
[2017-09-25] MEDS: POTASSIUM CHL 10 MEQ/WATER 50 ML IV PRN ×4 (07:51→14:12)
[2017-09-25] MEDS ORDERED: POTASSIUM CHL 10 MEQ/WATER 50 ML IV SCH (08:15)
[2017-09-25] MEDS ORDERED: MAGNESIUM SULFATE 2 GM in DEXTROSE 5%-WATER 50 ML IV ONE ×2 (08:15→22:15)
[2017-09-25 08:40] VITALS: BP 119/64
[2017-09-25] MEDS: BUDESONIDE 0.5 MG/2 ML NEB SOLUTION NEB SCH ×2 (08:53→21:18)
[2017-09-25] MEDS: 0.9% SODIUM CHLORIDE 10 ML SYRINGE IVP SCH ×3 (08:58→23:41)
[2017-09-25] MEDS: POLYETHYLENE GLYCOL 3350 17 GM PACKET PO SCH (09:00)
[2017-09-25] MEDS: FLUTICASONE PROPIONATE 50 MCG/SPRAY 16 GM NASAL SPRAY NASAL SCH ×2 (09:00→21:01)
[2017-09-25] MEDS: PANTOPRAZOLE SODIUM 40 MG DR TABLET PO SCH (09:00)
[2017-09-25] MEDS: DRONABINOL 2.5 MG CAPSULE PO SCH (09:00)
[2017-09-25] MEDS: ALLOPURINOL 100 MG TABLET PO SCH (09:00)
[2017-09-25] MEDS: MULTIVITAMINS WITH MINERALS, THERAPEUTIC TABLET PO SCH (09:00)
[2017-09-25] MEDS: DOCUSATE SODIUM 100 MG CAPSULE PO SCH (09:00)
[2017-09-25] MEDS: OXYGEN THERAPY IH SCH ×2 (09:01→21:02)
[2017-09-25 09:45] LABS: INR 1.3 (0.9-1.1); PROTHROMBIN TIME 13.8 SEC (9.4-11.6)
[2017-09-25] MEDS ORDERED: SODIUM CHLORIDE 0.9% 1,000 ML IV ONE ×2 (10:00)
[2017-09-25] MEDS ORDERED: SODIUM CHLORIDE 0.9% 0 ML IV ONE (10:00)
[2017-09-25] MEDS ORDERED: ZINC SULFATE 220 MG CAPSULE PO SCH (10:30)
[2017-09-25] MEDS ORDERED: ASCORBIC ACID 500 MG TABLET PO SCH (10:30)
[2017-09-25] MEDS ORDERED: FentaNYL CITRATE-PF 100 MCG/2 ML VIAL ONE (11:04)
[2017-09-25] MEDS ORDERED: MIDAZOLAM HCL 5 MG/ML VIAL ONE (11:04)
[2017-09-25 12:10] VITALS: BP 153/76
[2017-09-25 12:32] VITALS: BP 137/67
[2017-09-25 15:21] VITALS: BP 145/83
[2017-09-25 19:31] LABS: CALCIUM, TOTAL 8.3 mg/dL (8.8-10.5); CREATININE 1.41 mg/dL (0.60-1.30); MAGNESIUM 2.2 mg/dL (1.80-2.40)
[2017-09-25 19:48] LABS: POTASSIUM 2.7 mmol/L (3.5-5.1)
[2017-09-25] MEDS ORDERED: POTASSIUM CHLORIDE 10% 40 MEQ/30 ML LIQUID UDCUP PEG ONE (20:15)
[2017-09-25] MEDS: POTASSIUM CHL 10 MEQ/WATER 50 ML IV SCH ×2 (20:57→22:22)
[2017-09-25] MEDS: DOCUSATE SODIUM 100 MG CAPSULE PEG SCH (21:00)
[2017-09-25] MEDS: SENNA 218 MG/5 ML SYRUP ORAL.SYG PEG SCH (21:00)
[2017-09-25] MEDS ORDERED: ACETAMINOPHEN 650 MG/20.3 ML SOLUTION UDCUP PEG PRN (21:00)
[2017-09-25] MEDS: DRONABINOL 2.5 MG CAPSULE PEG SCH (21:01)
[2017-09-25] MEDS: MIRTAZAPINE 15 MG TABLET PEG SCH (21:02)
[2017-09-25] MEDS ORDERED: 0.9% SODIUM CHLORIDE 5 ML NEB SOLUTION NEB ONE (21:16)
[2017-09-25] MEDS ORDERED: DEXTROSE 50%-WATER 25 GM/50 ML SYRINGE IVP PRN (23:45)
[2017-09-26] MEDS: POTASSIUM CHL 10 MEQ/WATER 50 ML IV SCH ×2 (00:13→01:44)
[2017-09-26] MEDS ORDERED: OxyCODONE HCL/ACETAMINOPHEN 5-325 MG TABLET PEG PRN (00:15)
[2017-09-26 00:39] VITALS: BP 128/70
[2017-09-26 00:56] LABS: GLUCOSE,POINT OF CARE 107 MG/DL (70-110)
[2017-09-26] MEDS: PIPERACILLIN/TAZO 3.375 GM/D5W 50 ML IV SCH ×3 (04:23→16:03)
[2017-09-26 04:29] LABS: EOSINOPHILS # (AUTO) 0.18 K/uL (0.00-0.70); EOSINOPHILS % (AUTO) 1.24 % (1.0-6.0); HEMOGLOBIN 9.2 g/dL (13.5-17.5); LYMPHOCYTES # (AUTO) 1.4 K/uL (1.0-4.8); LYMPHOCYTES % (AUTO) 9.9 % (22.0-44.0); MEAN CORPUSCULAR HEMOGLOBIN 29.5 pg (26.0-34.0); MEAN CORPUSCULAR HGB CONC 31.6 G/dL (31.0-37.0); MEAN CORPUSCULAR VOLUME 93 fL (80-100); MONOCYTES # (AUTO) 0.7 K/uL (0.1-1.0); MONOCYTES % (AUTO) 5.1 % (2.0-9.0); NEUTROPHILS # (AUTO) 11.9 K/uL (1.8-7.7); NEUTROPHILS % (AUTO) 83.8 % (40.0-70.0); PLATELET COUNT (AUTO) 134 K/uL (150-450); RED BLOOD CELL COUNT(AUTO) 3.11 MIL/uL (4.50-5.90); RED CELL DISTRIBUTION WIDTH 24.2 % (11.5-14.5); WHITE BLOOD COUNT (AUTO) 14.2 K/uL (4.5-11.0)
[2017-09-26 04:43] LABS: CALCIUM, TOTAL 8.4 mg/dL (8.8-10.5); CREATININE 1.4 mg/dL (0.60-1.30); POTASSIUM 3.4 mmol/L (3.5-5.1)
[2017-09-26] MEDS: VANCOMYCIN HCL 1 GM/D5% WATER 200 ML IV SCH (05:03)
[2017-09-26 07:30] VITALS: BP 117/58
[2017-09-26] MEDS: 0.9% SODIUM CHLORIDE 10 ML SYRINGE IVP SCH ×2 (07:31→16:03)
[2017-09-26] MEDS: POTASSIUM CHL 10 MEQ/WATER 50 ML IV PRN ×3 (07:38→13:28)
[2017-09-26] MEDS: OXYGEN THERAPY IH SCH ×2 (07:39→20:33)
[2017-09-26] MEDS: FERROUS SULFATE 300 MG/5 ML LIQUID UDCUP PEG SCH (07:39)
[2017-09-26] MEDS: BUDESONIDE 0.5 MG/2 ML NEB SOLUTION NEB SCH ×2 (08:56→21:00)
[2017-09-26] MEDS: HYDROGEN PEROXIDE 473 ML SOLUTION TP SCH ×2 (09:00→10:55)
[2017-09-26] MEDS: POLYETHYLENE GLYCOL 3350 17 GM PACKET PO SCH (09:00)
[2017-09-26] MEDS: DOCUSATE SODIUM 100 MG CAPSULE PEG SCH ×2 (09:00→20:34)
[2017-09-26] MEDS: ZINC SULFATE 220 MG CAPSULE PEG SCH (09:20)
[2017-09-26] MEDS: ALLOPURINOL 100 MG TABLET PEG SCH (09:21)
[2017-09-26] MEDS: DRONABINOL 2.5 MG CAPSULE PEG SCH ×2 (09:21→20:34)
[2017-09-26] MEDS: ASCORBIC ACID 500 MG TABLET PEG SCH (09:22)
[2017-09-26] MEDS: MULTIVITAMINS WITH MINERALS, THERAPEUTIC 15 ML UDCUP PEG SCH (09:22)
[2017-09-26] MEDS: FLUTICASONE PROPIONATE 50 MCG/SPRAY 16 GM NASAL SPRAY NASAL SCH ×2 (09:23→20:34)
[2017-09-26] MEDS: LANSOPRAZOLE 30 MG SOLUBLE TABLET PEG SCH (09:23)
[2017-09-26] MEDS: EPOETIN ALFA 10,000 UNITS/ML VIAL SQ SCH (09:29)
[2017-09-26] MEDS: POVIDONE-IODINE 10% 120 ML SOLUTION TP SCH (10:55)
[2017-09-26 12:17] LABS: GLUCOSE,POINT OF CARE 142 MG/DL (70-110)
[2017-09-26] MEDS ORDERED: POTASSIUM CHLORIDE 20 MEQ ER TABLET PO ONE ×2 (12:45→18:00)
[2017-09-26] MEDS: INSULIN REGULAR, HUMAN 100 UNITS/ML SQ PRN (13:26)
[2017-09-26 15:15] VITALS: BP 118/66
[2017-09-26 17:47] LABS: GLUCOSE,POINT OF CARE 122 MG/DL (70-110)
[2017-09-26 18:27] LABS: GLUCOSE,POINT OF CARE 111 MG/DL (70-110)
[2017-09-26] MEDS: MIRTAZAPINE 15 MG TABLET PEG SCH (20:34)
[2017-09-26] MEDS: SENNA 218 MG/5 ML SYRUP ORAL.SYG PEG SCH (20:34)
[2017-09-27] VITALS: BP 142/68
[2017-09-27] MEDS: 0.9% SODIUM CHLORIDE 10 ML SYRINGE IVP SCH ×3 (00:57→15:24)
[2017-09-27 01:07] LABS: GLUCOSE,POINT OF CARE 101 MG/DL (70-110)
[2017-09-27] MEDS: PIPERACILLIN/TAZO 3.375 GM/D5W 50 ML IV SCH ×4 (04:45→16:31)
[2017-09-27] MEDS: VANCOMYCIN HCL 1 GM/D5% WATER 200 ML IV SCH (05:37)
[2017-09-27] MEDS: INSULIN REGULAR, HUMAN 100 UNITS/ML SQ PRN (06:11)
[2017-09-27 06:22] LABS: GLUCOSE,POINT OF CARE 155 MG/DL (70-110)
[2017-09-27 06:35] LABS: ANION GAP 5 mmol/L (8-16); CALCIUM, TOTAL 8.2 mg/dL (8.8-10.5); CARBON DIOXIDE 32 mmol/L (22-29); CHLORIDE 108 mmol/L (98-107); GLOMERULAR FILTR. RATE CALC > 60 mL/min (>60); PHOSPHORUS 1.9 mg/dL (2.5-4.9); SODIUM SERUM 145 mmol/L (136-145); UREA NITROGEN, BLOOD 6 mg/dL (7-18)
[2017-09-27] MEDS ORDERED: 0.9% SODIUM CHLORIDE 5 ML NEB SOLUTION NEB ONE (08:22)
[2017-09-27] MEDS: BUDESONIDE 0.5 MG/2 ML NEB SOLUTION NEB SCH ×2 (08:29→20:49)
[2017-09-27 08:30] VITALS: BP 139/77
[2017-09-27] MEDS ORDERED: POTASSIUM CHLORIDE 20 MEQ ER TABLET PO ONE (09:00)
[2017-09-27] MEDS: DOCUSATE SODIUM 100 MG CAPSULE PEG SCH (09:00)
[2017-09-27] MEDS: HYDROGEN PEROXIDE 473 ML SOLUTION TP SCH (09:00)
[2017-09-27] MEDS ORDERED: POTASSIUM CHLORIDE 10% 40 MEQ/30 ML LIQUID UDCUP PEG ONE ×2 (09:00→20:45)
[2017-09-27] MEDS: POLYETHYLENE GLYCOL 3350 17 GM PACKET PO SCH (09:00)
[2017-09-27] MEDS ORDERED: POTASSIUM CHL 10 MEQ/WATER 50 ML IV SCH (09:00)
[2017-09-27] MEDS: FERROUS SULFATE 300 MG/5 ML LIQUID UDCUP PEG SCH (09:03)
[2017-09-27] MEDS: POTASSIUM CHL 10 MEQ/WATER 50 ML IV PRN ×4 (09:04→15:25)
[2017-09-27] MEDS: OXYGEN THERAPY IH SCH ×2 (09:04→20:26)
[2017-09-27] MEDS: ASCORBIC ACID 500 MG TABLET PEG SCH (09:28)
[2017-09-27] MEDS: DRONABINOL 2.5 MG CAPSULE PEG SCH ×2 (09:28→20:27)
[2017-09-27] MEDS: LANSOPRAZOLE 30 MG SOLUBLE TABLET PEG SCH (09:28)
[2017-09-27] MEDS: MULTIVITAMINS WITH MINERALS, THERAPEUTIC 15 ML UDCUP PEG SCH (09:28)
[2017-09-27] MEDS: ALLOPURINOL 100 MG TABLET PEG SCH (09:29)
[2017-09-27] MEDS: ZINC SULFATE 220 MG CAPSULE PEG SCH (09:29)
[2017-09-27] MEDS: POVIDONE-IODINE 10% 120 ML SOLUTION TP SCH (09:30)
[2017-09-27] MEDS ORDERED: POLYETHYLENE GLYCOL 3350 17 GM PACKET PO PRN (09:45)
[2017-09-27] MEDS: FLUTICASONE PROPIONATE 50 MCG/SPRAY 16 GM NASAL SPRAY NASAL SCH ×2 (11:09→20:26)
[2017-09-27 12:37] LABS: GLUCOSE,POINT OF CARE 109 MG/DL (70-110)
[2017-09-27 15:10] VITALS: BP 106/56
[2017-09-27 18:17] LABS: GLUCOSE,POINT OF CARE 126 MG/DL (70-110)
[2017-09-27 18:33] LABS: ANION GAP 4 mmol/L (8-16); CARBON DIOXIDE 32 mmol/L (22-29); CHLORIDE 106 mmol/L (98-107); CREATININE 1.28 mg/dL (0.60-1.30); GLOMERULAR FILTR. RATE CALC > 60 mL/min (>60); PHOSPHORUS 1.6 mg/dL (2.5-4.9); POTASSIUM 3.3 mmol/L (3.5-5.1); SODIUM SERUM 142 mmol/L (136-145); UREA NITROGEN, BLOOD 6 mg/dL (7-18)
[2017-09-27] MEDS: MIRTAZAPINE 15 MG TABLET PEG SCH (20:26)
[2017-09-27] MEDS: SENNA 218 MG/5 ML SYRUP ORAL.SYG PEG SCH ×2 (20:27→20:54)
[2017-09-27] MEDS ORDERED: MAGNESIUM SULFATE 2 GM in DEXTROSE 5%-WATER 50 ML IV ONE (20:45)
[2017-09-27] MEDS ORDERED: POTASSIUM PHOS,M-BASIC-D-BASIC 20 MEQ in DEXTROSE 5%-WATER 100 ML IV ONE (20:45)
[2017-09-27 23:32] LABS: GLUCOSE,POINT OF CARE 114 MG/DL (70-110)
[2017-09-27 23:55] VITALS: BP 114/62
[2017-09-28] MEDS: 0.9% SODIUM CHLORIDE 10 ML SYRINGE IVP SCH ×3 (01:05→16:19)
[2017-09-28] MEDS: PIPERACILLIN/TAZO 3.375 GM/D5W 50 ML IV SCH ×5 (01:06→22:07)
[2017-09-28 04:23] VITALS: BP 112/57
[2017-09-28] MEDS: VANCOMYCIN HCL 1 GM/D5% WATER 200 ML IV SCH (05:38)
[2017-09-28 05:42] LABS: GLUCOSE,POINT OF CARE 141 MG/DL (70-110)
[2017-09-28] MEDS: INSULIN REGULAR, HUMAN 100 UNITS/ML SQ PRN (05:48)
[2017-09-28 06:36] LABS: ANION GAP 6 mmol/L (8-16); CALCIUM, TOTAL 8.1 mg/dL (8.8-10.5); CARBON DIOXIDE 30 mmol/L (22-29); CHLORIDE 106 mmol/L (98-107); CREATININE 1.29 mg/dL (0.60-1.30); GLOMERULAR FILTR. RATE CALC > 60 mL/min (>60); POTASSIUM 3.2 mmol/L (3.5-5.1); SODIUM SERUM 142 mmol/L (136-145); UREA NITROGEN, BLOOD 7 mg/dL (7-18)
[2017-09-28] MEDS ORDERED: 0.9% SODIUM CHLORIDE 5 ML NEB SOLUTION NEB ONE (08:19)
[2017-09-28] MEDS: BUDESONIDE 0.5 MG/2 ML NEB SOLUTION NEB SCH ×2 (08:20→21:04)
[2017-09-28] MEDS: OXYGEN THERAPY IH SCH ×2 (08:49→20:18)
[2017-09-28] MEDS: ASCORBIC ACID 500 MG TABLET PEG SCH (08:50)
[2017-09-28] MEDS: ALLOPURINOL 100 MG TABLET PEG SCH (08:50)
[2017-09-28] MEDS: ZINC SULFATE 220 MG CAPSULE PEG SCH (08:50)
[2017-09-28] MEDS: DRONABINOL 2.5 MG CAPSULE PEG SCH ×2 (08:50→20:19)
[2017-09-28] MEDS: POVIDONE-IODINE 10% 120 ML SOLUTION TP SCH (08:51)
[2017-09-28] MEDS: FLUTICASONE PROPIONATE 50 MCG/SPRAY 16 GM NASAL SPRAY NASAL SCH ×2 (08:51→20:18)
[2017-09-28] MEDS: EPOETIN ALFA 10,000 UNITS/ML VIAL SQ SCH (08:51)
[2017-09-28] MEDS: LANSOPRAZOLE 30 MG SOLUBLE TABLET PEG SCH (08:52)
[2017-09-28] MEDS: FERROUS SULFATE 300 MG/5 ML LIQUID UDCUP PEG SCH (08:53)
[2017-09-28] MEDS: MULTIVITAMINS WITH MINERALS, THERAPEUTIC 15 ML UDCUP PEG SCH (08:53)
[2017-09-28] MEDS: HYDROGEN PEROXIDE 473 ML SOLUTION TP SCH (08:56)
[2017-09-28] MEDS ORDERED: POTASSIUM CHL 10 MEQ/WATER 50 ML IV SCH (09:00)
[2017-09-28] MEDS ORDERED: ERGOCALCIFEROL PEG SCH (09:00)
[2017-09-28 09:24] VITALS: BP 116/67
[2017-09-28] MEDS: POTASSIUM PHOS/SODIUM PHOS MIXTURE 1 POWDER PACKET PEG SCH ×2 (09:48→20:18)
[2017-09-28] MEDS ORDERED: POTASSIUM CHLORIDE 10% 40 MEQ/30 ML LIQUID UDCUP PEG ONE (10:00)
[2017-09-28] MEDS: POTASSIUM CHL 10 MEQ/WATER 50 ML IV PRN ×3 (10:20→13:12)
[2017-09-28 12:37] LABS: GLUCOSE,POINT OF CARE 134 MG/DL (70-110)
[2017-09-28 15:44] VITALS: BP 110/62
[2017-09-28] MEDS: MIRTAZAPINE 15 MG TABLET PEG SCH (20:19)
[2017-09-28] MEDS: SENNA 218 MG/5 ML SYRUP ORAL.SYG PEG SCH (20:19)
[2017-09-28 21:23] LABS: GLUCOSE,POINT OF CARE 124 MG/DL (70-110)
[2017-09-28] MEDS ORDERED: POTASSIUM CHLORIDE 20 MEQ ER TABLET PO ONE (22:00)
[2017-09-29 00:07] LABS: GLUCOSE,POINT OF CARE 120 MG/DL (70-110)
[2017-09-29] MEDS: 0.9% SODIUM CHLORIDE 10 ML SYRINGE IVP SCH ×4 (00:31→23:28)
[2017-09-29 00:55] VITALS: BP 120/70
[2017-09-29] MEDS: PIPERACILLIN/TAZO 3.375 GM/D5W 50 ML IV SCH ×4 (04:27→22:06)
[2017-09-29] MEDS: VANCOMYCIN HCL 1 GM/D5% WATER 200 ML IV SCH (05:38)
[2017-09-29 05:47] LABS: GLUCOSE,POINT OF CARE 123 MG/DL (70-110)
[2017-09-29 06:23] LABS: EOSINOPHILS % (AUTO) 1.7 % (1.0-6.0); HEMOGLOBIN 9.5 g/dL (13.5-17.5); LYMPHOCYTES # (AUTO) 1.6 K/uL (1.0-4.8); LYMPHOCYTES % (AUTO) 11.8 % (22.0-44.0); MEAN CORPUSCULAR HEMOGLOBIN 29.6 pg (26.0-34.0); MEAN CORPUSCULAR HGB CONC 31.6 G/dL (31.0-37.0); MEAN CORPUSCULAR VOLUME 94 fL (80-100); MONOCYTES # (AUTO) 0.8 K/uL (0.1-1.0); MONOCYTES % (AUTO) 5.4 % (2.0-9.0); NEUTROPHILS # (AUTO) 11.4 K/uL (1.8-7.7); NEUTROPHILS % (AUTO) 81.1 % (40.0-70.0); PLATELET COUNT (AUTO) 147 K/uL (150-450); RED CELL DISTRIBUTION WIDTH 24.4 % (11.5-14.5)
[2017-09-29 07:03] VITALS: BP 131/66
[2017-09-29 07:03] LABS: ANION GAP 4 mmol/L (8-16); CALCIUM, TOTAL 8.1 mg/dL (8.8-10.5); CARBON DIOXIDE 33 mmol/L (22-29); CHLORIDE 104 mmol/L (98-107); CREATININE 1.26 mg/dL (0.60-1.30); GLOMERULAR FILTR. RATE CALC > 60 mL/min (>60); PHOSPHORUS 2.1 mg/dL (2.5-4.9); POTASSIUM 3.8 mmol/L (3.5-5.1); SODIUM SERUM 141 mmol/L (136-145); UREA NITROGEN, BLOOD 9 mg/dL (7-18)
[2017-09-29 07:04] LABS: RBC MORPHOLOGY COMMENT ABNORMAL RBC MORPH
[2017-09-29] MEDS ORDERED: MAGNESIUM SULFATE 2 GM in DEXTROSE 5%-WATER 50 ML IV ONE (08:00)
[2017-09-29] MEDS ORDERED: SODIUM CHLORIDE 0.9% 100 ML ONE (08:24)
[2017-09-29] MEDS: OXYGEN THERAPY IH SCH ×3 (08:26→20:41)
[2017-09-29] MEDS: HYDROGEN PEROXIDE 473 ML SOLUTION TP SCH (09:00)
[2017-09-29] MEDS: ASCORBIC ACID 500 MG TABLET PEG SCH (09:36)
[2017-09-29] MEDS: ALLOPURINOL 100 MG TABLET PEG SCH (09:36)
[2017-09-29] MEDS: MULTIVITAMINS WITH MINERALS, THERAPEUTIC 15 ML UDCUP PEG SCH (09:37)
[2017-09-29] MEDS: DRONABINOL 2.5 MG CAPSULE PEG SCH ×2 (09:37→21:27)
[2017-09-29] MEDS: FERROUS SULFATE 300 MG/5 ML LIQUID UDCUP PEG SCH (09:37)
[2017-09-29] MEDS: ZINC SULFATE 220 MG CAPSULE PEG SCH (09:37)
[2017-09-29] MEDS: LANSOPRAZOLE 30 MG SOLUBLE TABLET PEG SCH (09:38)
[2017-09-29] MEDS: POTASSIUM PHOS/SODIUM PHOS MIXTURE 1 POWDER PACKET JT SCH ×2 (09:38→21:40)
[2017-09-29] MEDS: POTASSIUM CHLORIDE 10% 40 MEQ/30 ML LIQUID UDCUP JT SCH ×2 (09:41→21:38)
[2017-09-29] MEDS: FLUTICASONE PROPIONATE 50 MCG/SPRAY 16 GM NASAL SPRAY NASAL SCH ×2 (09:41→21:28)
[2017-09-29] MEDS: POVIDONE-IODINE 10% 120 ML SOLUTION TP SCH (09:46)
[2017-09-29] MEDS: BUDESONIDE 0.5 MG/2 ML NEB SOLUTION NEB SCH ×2 (10:17→20:37)
[2017-09-29 12:18] LABS: GLUCOSE,POINT OF CARE 124 MG/DL (70-110)
[2017-09-29 15:16] VITALS: BP 103/52
[2017-09-29 18:57] LABS: GLUCOSE,POINT OF CARE 135 MG/DL (70-110)
[2017-09-29] MEDS: SENNA 218 MG/5 ML SYRUP ORAL.SYG PEG SCH (21:28)
[2017-09-29] MEDS: MIRTAZAPINE 15 MG TABLET PEG SCH (21:28)
[2017-09-30 00:53] VITALS: BP 120/61
[2017-09-30 01:52] LABS: GLUCOSE,POINT OF CARE 122 MG/DL (70-110)
[2017-09-30 06:13] LABS: GLUCOSE,POINT OF CARE 120 MG/DL (70-110)
[2017-09-30 06:23] LABS: ANION GAP 3 mmol/L (8-16); CALCIUM, TOTAL 8.3 mg/dL (8.8-10.5); CARBON DIOXIDE 34 mmol/L (22-29); CHLORIDE 102 mmol/L (98-107); CREATININE 1.32 mg/dL (0.60-1.30); GLOMERULAR FILTR. RATE CALC > 60 mL/min (>60); PHOSPHORUS 2.3 mg/dL (2.5-4.9); POTASSIUM 4.1 mmol/L (3.5-5.1); SODIUM SERUM 139 mmol/L (136-145); UREA NITROGEN, BLOOD 10 mg/dL (7-18)
[2017-09-30 07:40] VITALS: BP 119/66
[2017-09-30] MEDS ORDERED: 0.9% SODIUM CHLORIDE 5 ML NEB SOLUTION NEB ONE (08:32)
[2017-09-30] MEDS: HYDROGEN PEROXIDE 473 ML SOLUTION TP SCH (09:00)
[2017-09-30] MEDS: MULTIVITAMINS WITH MINERALS, THERAPEUTIC 15 ML UDCUP PEG SCH (09:34)
[2017-09-30] MEDS: EPOETIN ALFA 10,000 UNITS/ML VIAL SQ SCH (09:35)
[2017-09-30] MEDS: FLUTICASONE PROPIONATE 50 MCG/SPRAY 16 GM NASAL SPRAY NASAL SCH ×2 (09:35→20:50)
[2017-09-30] MEDS: POTASSIUM PHOS/SODIUM PHOS MIXTURE 1 POWDER PACKET PO SCH ×2 (09:35→20:49)
[2017-09-30] MEDS: FERROUS SULFATE 300 MG/5 ML LIQUID UDCUP PEG SCH (09:35)
[2017-09-30] MEDS: LANSOPRAZOLE 30 MG SOLUBLE TABLET PEG SCH (09:36)
[2017-09-30] MEDS: ALLOPURINOL 100 MG TABLET PEG SCH (09:36)
[2017-09-30] MEDS: ZINC SULFATE 220 MG CAPSULE PEG SCH (09:36)
[2017-09-30] MEDS: ASCORBIC ACID 500 MG TABLET PEG SCH (09:36)
[2017-09-30] MEDS: DRONABINOL 2.5 MG CAPSULE PEG SCH ×2 (09:36→20:49)
[2017-09-30] MEDS: 0.9% SODIUM CHLORIDE 10 ML SYRINGE IVP SCH ×3 (09:37→23:55)
[2017-09-30] MEDS: BUDESONIDE 0.5 MG/2 ML NEB SOLUTION NEB SCH ×2 (09:38→20:32)
[2017-09-30] MEDS: OXYGEN THERAPY IH SCH ×2 (09:38→20:33)
[2017-09-30] MEDS: POVIDONE-IODINE 10% 120 ML SOLUTION TP SCH (09:39)
[2017-09-30 13:07] LABS: GLUCOSE,POINT OF CARE 106 MG/DL (70-110)
[2017-09-30 15:40] VITALS: BP 123/63
[2017-09-30 18:17] LABS: GLUCOSE,POINT OF CARE 87 MG/DL (70-110)
[2017-09-30] MEDS: MIRTAZAPINE 15 MG TABLET PEG SCH (20:50)
[2017-09-30] MEDS: SENNA 218 MG/5 ML SYRUP ORAL.SYG PEG SCH (20:51)
[2017-10-01 00:17] LABS: GLUCOSE,POINT OF CARE 155 MG/DL (70-110)
[2017-10-01 00:56] VITALS: BP 111/63
[2017-10-01 04:36] LABS: GLUCOSE,POINT OF CARE 81 MG/DL (70-110)
[2017-10-01 06:12] LABS: BASOPHILS % (AUTO) 0.1 % (0.0-2.0); EOSINOPHILS % (AUTO) 1.5 % (1.0-6.0); HEMATOCRIT 31.2 % (41-53); HEMOGLOBIN 10.1 g/dL (13.5-17.5); LYMPHOCYTES # (AUTO) 1.9 K/uL (1.0-4.8); LYMPHOCYTES % (AUTO) 12.9 % (22.0-44.0); MEAN CORPUSCULAR HEMOGLOBIN 30.3 pg (26.0-34.0); MEAN CORPUSCULAR HGB CONC 32.3 G/dL (31.0-37.0); MEAN CORPUSCULAR VOLUME 94 fL (80-100); MONOCYTES # (AUTO) 0.7 K/uL (0.1-1.0); MONOCYTES % (AUTO) 4.9 % (2.0-9.0); NEUTROPHILS # (AUTO) 12.2 K/uL (1.8-7.7); NEUTROPHILS % (AUTO) 80.6 % (40.0-70.0); PLATELET COUNT (AUTO) 168 K/uL (150-450); RED BLOOD CELL COUNT(AUTO) 3.33 MIL/uL (4.50-5.90); RED CELL DISTRIBUTION WIDTH 24.8 % (11.5-14.5); WHITE BLOOD COUNT (AUTO) 15.1 K/uL (4.5-11.0)
[2017-10-01 06:56] LABS: CALCIUM, TOTAL 8.7 mg/dL (8.8-10.5); CREATININE 1.42 mg/dL (0.60-1.30); MAGNESIUM 1.7 mg/dL (1.80-2.40); PHOSPHORUS 3.1 mg/dL (2.5-4.9); POTASSIUM 3.9 mmol/L (3.5-5.1)
[2017-10-01 07:10] VITALS: BP 131/68
[2017-10-01] MEDS: OXYGEN THERAPY IH SCH ×2 (08:00→20:00)
[2017-10-01] MEDS ORDERED: MAGNESIUM SULFATE 2 GM in DEXTROSE 5%-WATER 50 ML IV ONE (08:15)
[2017-10-01] MEDS: 0.9% SODIUM CHLORIDE 10 ML SYRINGE IVP SCH ×3 (08:38→23:40)
[2017-10-01] MEDS: FERROUS SULFATE 300 MG/5 ML LIQUID UDCUP PEG SCH (08:38)
[2017-10-01] MEDS: MULTIVITAMINS WITH MINERALS, THERAPEUTIC 15 ML UDCUP PEG SCH (08:38)
[2017-10-01] MEDS: LANSOPRAZOLE 30 MG SOLUBLE TABLET PEG SCH (08:39)
[2017-10-01] MEDS: DRONABINOL 2.5 MG CAPSULE PEG SCH ×2 (08:39→20:57)
[2017-10-01] MEDS: ASCORBIC ACID 500 MG TABLET PEG SCH (08:39)
[2017-10-01] MEDS: ALLOPURINOL 100 MG TABLET PEG SCH (08:39)
[2017-10-01] MEDS: POVIDONE-IODINE 10% 120 ML SOLUTION TP SCH (08:39)
[2017-10-01] MEDS: ZINC SULFATE 220 MG CAPSULE PEG SCH (08:39)
[2017-10-01] MEDS: FLUTICASONE PROPIONATE 50 MCG/SPRAY 16 GM NASAL SPRAY NASAL SCH ×2 (08:41→20:57)
[2017-10-01] MEDS: HYDROGEN PEROXIDE 473 ML SOLUTION TP SCH (09:00)
[2017-10-01] MEDS: BUDESONIDE 0.5 MG/2 ML NEB SOLUTION NEB SCH ×2 (09:00→21:31)
[2017-10-01 09:32] LABS: RBC MORPHOLOGY COMMENT ABNORMAL RBC MORPH
[2017-10-01] MEDS ORDERED: SODIUM CHLORIDE 0.9% 100 ML ONE (09:56)
[2017-10-01 16:03] VITALS: BP 137/73
[2017-10-01 18:37] LABS: GLUCOSE,POINT OF CARE 65 MG/DL (70-110)
[2017-10-01] MEDS: SENNA 218 MG/5 ML SYRUP ORAL.SYG PEG SCH (20:52)
[2017-10-01] MEDS: MIRTAZAPINE 15 MG TABLET PEG SCH (20:57)
[2017-10-01 22:22] LABS: GLUCOSE,POINT OF CARE 124 MG/DL (70-110)
[2017-10-02] VITALS: BP 146/79
[2017-10-02 07:20] VITALS: BP 145/74
[2017-10-02 07:42] LABS: CALCIUM, TOTAL 8.6 mg/dL (8.8-10.5); CREATININE 1.36 mg/dL (0.60-1.30); MAGNESIUM 1.9 mg/dL (1.80-2.40); PHOSPHORUS 3.2 mg/dL (2.5-4.9); POTASSIUM 3.8 mmol/L (3.5-5.1)
[2017-10-02] MEDS: ALLOPURINOL 100 MG TABLET PEG SCH (07:56)
[2017-10-02] MEDS: MULTIVITAMINS WITH MINERALS, THERAPEUTIC 15 ML UDCUP PEG SCH (07:56)
[2017-10-02] MEDS: FERROUS SULFATE 300 MG/5 ML LIQUID UDCUP PEG SCH (07:57)
[2017-10-02] MEDS: LANSOPRAZOLE 30 MG SOLUBLE TABLET PEG SCH (07:57)
[2017-10-02] MEDS: ZINC SULFATE 220 MG CAPSULE PEG SCH (07:57)
[2017-10-02] MEDS: OXYGEN THERAPY IH SCH ×2 (07:57→20:00)
[2017-10-02] MEDS: ASCORBIC ACID 500 MG TABLET PEG SCH (07:57)
[2017-10-02] MEDS: DRONABINOL 2.5 MG CAPSULE PEG SCH ×2 (07:57→20:58)
[2017-10-02] MEDS: FLUTICASONE PROPIONATE 50 MCG/SPRAY 16 GM NASAL SPRAY NASAL SCH ×3 (07:57→20:58)
[2017-10-02] MEDS: EPOETIN ALFA 10,000 UNITS/ML VIAL SQ SCH (07:59)
[2017-10-02] MEDS: POVIDONE-IODINE 10% 120 ML SOLUTION TP SCH (07:59)
[2017-10-02] MEDS: HYDROGEN PEROXIDE 473 ML SOLUTION TP SCH (07:59)
[2017-10-02 08:52] LABS: GLUCOSE,POINT OF CARE 139 MG/DL (70-110)
[2017-10-02] MEDS: BUDESONIDE 0.5 MG/2 ML NEB SOLUTION NEB SCH ×2 (09:20→21:51)
[2017-10-02] MEDS: 0.9% SODIUM CHLORIDE 10 ML SYRINGE IVP SCH ×2 (10:07→16:09)
[2017-10-02 15:20] VITALS: BP 116/62
[2017-10-02 17:28] LABS: GLUCOSE,POINT OF CARE 144 MG/DL (70-110)
[2017-10-02] MEDS: INSULIN REGULAR, HUMAN 100 UNITS/ML SQ PRN (17:45)
[2017-10-02] MEDS ORDERED: FERSL PO (20:22)
[2017-10-02] MEDS ORDERED: ENAL5 PO (20:22)
[2017-10-02] MEDS ORDERED: DRON2.5C PO (20:22)
[2017-10-02] MEDS ORDERED: LANS30 PO (20:22)
[2017-10-02] MEDS ORDERED: MIRT15 PO (20:22)
[2017-10-02] MEDS ORDERED: BUDE90AE BC (20:22)
[2017-10-02] MEDS ORDERED: ASCO500 PO (20:22)
[2017-10-02] MEDS ORDERED: FLUT16H NASAL (20:22)
[2017-10-02] MEDS ORDERED: ZINC220 PO (20:28)
[2017-10-02] MEDS ORDERED: MULT9LIQ6 GT (20:28)
[2017-10-02] MEDS ORDERED: ACET-2887 GT (20:28)
[2017-10-02 20:55] VITALS: BP 114/66
[2017-10-02] MEDS: ENALAPRIL MALEATE 5 MG TABLET PO SCH (20:58)
[2017-10-02] MEDS: MIRTAZAPINE 15 MG TABLET PEG SCH (20:58)
[2017-10-03] MEDS: 0.9% SODIUM CHLORIDE 10 ML SYRINGE IVP SCH ×2 (00:45→08:36)
[2017-10-03 05:30] VITALS: BP 139/81
[2017-10-03 06:02] LABS: GLUCOSE,POINT OF CARE 98 MG/DL (70-110)
[2017-10-03 07:06] LABS: ANION GAP 6 mmol/L (8-16); CALCIUM, TOTAL 8.6 mg/dL (8.8-10.5); CARBON DIOXIDE 31 mmol/L (22-29); CHLORIDE 100 mmol/L (98-107); CREATININE 1.25 mg/dL (0.60-1.30); GLOMERULAR FILTR. RATE CALC > 60 mL/min (>60); PHOSPHORUS 2.8 mg/dL (2.5-4.9); POTASSIUM 3.8 mmol/L (3.5-5.1); SODIUM SERUM 137 mmol/L (136-145); UREA NITROGEN, BLOOD 15 mg/dL (7-18)
[2017-10-03 07:29] VITALS: BP 135/66
[2017-10-03] MEDS: OXYGEN THERAPY IH SCH (08:00)
[2017-10-03] MEDS: FLUTICASONE PROPIONATE 50 MCG/SPRAY 16 GM NASAL SPRAY NASAL SCH (08:31)
[2017-10-03] MEDS: ASCORBIC ACID 500 MG TABLET PEG SCH (08:32)
[2017-10-03] MEDS: DRONABINOL 2.5 MG CAPSULE PEG SCH (08:32)
[2017-10-03] MEDS: ZINC SULFATE 220 MG CAPSULE PEG SCH (08:32)
[2017-10-03] MEDS: POVIDONE-IODINE 10% 120 ML SOLUTION TP SCH (08:34)
[2017-10-03] MEDS: MULTIVITAMINS WITH MINERALS, THERAPEUTIC 15 ML UDCUP PEG SCH (08:34)
[2017-10-03] MEDS: ALLOPURINOL 100 MG TABLET PEG SCH (08:34)
[2017-10-03] MEDS: LANSOPRAZOLE 30 MG SOLUBLE TABLET PEG SCH (08:34)
[2017-10-03] MEDS: ENALAPRIL MALEATE 5 MG TABLET PO SCH (08:34)
[2017-10-03] MEDS: FERROUS SULFATE 300 MG/5 ML LIQUID UDCUP PEG SCH (08:34)
[2017-10-03] MEDS: HYDROGEN PEROXIDE 473 ML SOLUTION TP SCH (08:37)
[2017-10-03] MEDS: BUDESONIDE 0.5 MG/2 ML NEB SOLUTION NEB SCH (10:30)
[2017-10-03] MEDS ORDERED: LACT1POW8 MC (14:49)
[2017-10-08] MEDS ORDERED: ERGOCALCIFEROL PEG SCH (09:00)
== END 2017-10-03 15:34 | disposition home health service (06) | DRG 374 ==
LOC: 2WR 13:09
PROVIDERS: ADMIT Physical Medicine & Rehabilitation; ATTEND Physical Medicine & Rehabilitation
PROC: 0DH63UZ Insertion of Feeding Device into Stomach, Percutaneous Approach (ICD-10-PCS; principal; 2017-09-25 11:00)
DX: C18.0 Malignant neoplasm of cecum (principal); J96.01 Acute respiratory failure with hypoxia; J69.0 Pneumonitis due to inhalation of food and vomit; E43 Unspecified severe protein-calorie malnutrition; G93.41 Metabolic encephalopathy; A41.9 Sepsis, unspecified organism; J90 Pleural effusion, not elsewhere classified; N17.9 Acute kidney failure, unspecified; K92.2 Gastrointestinal hemorrhage, unspecified; E87.0 Hyperosmolality and hypernatremia; Z68.42 Body mass index [BMI] 45.0-49.9, adult; I13.0 Hypertensive heart and chronic kidney disease with heart failure and stage 1 through stage 4 chronic kidney disease, or unspecified chronic kidney disease; I50.30 Unspecified diastolic (congestive) heart failure; K56.7 Ileus, unspecified; D69.6 Thrombocytopenia, unspecified; L89.150 Pressure ulcer of sacral region, unstageable; I48.91 Unspecified atrial fibrillation; E83.39 Other disorders of phosphorus metabolism; D63.8 Anemia in other chronic diseases classified elsewhere; R13.10 Dysphagia, unspecified; E86.0 Dehydration; E83.42 Hypomagnesemia; Z96.649 Presence of unspecified artificial hip joint; K21.9 Gastro-esophageal reflux disease without esophagitis; M10.9 Gout, unspecified; N18.9 Chronic kidney disease, unspecified; I25.10 Atherosclerotic heart disease of native coronary artery without angina pectoris; E87.6 Hypokalemia; F32.9 Major depressive disorder, single episode, unspecified; R32 Unspecified urinary incontinence; B96.20 Unspecified Escherichia coli [E. coli] as the cause of diseases classified elsewhere; E78.5 Hyperlipidemia, unspecified; M19.90 Unspecified osteoarthritis, unspecified site; R62.7 Adult failure to thrive; R26.9 Unspecified abnormalities of gait and mobility; F43.21 Adjustment disorder with depressed mood; X58.XXXA Exposure to other specified factors, initial encounter; F03.90 Unspecified dementia, unspecified severity, without behavioral disturbance, psychotic disturbance, mood disturbance, and anxiety; R31.9 Hematuria, unspecified; S30.0XXA Contusion of lower back and pelvis, initial encounter; Z74.01 Bed confinement status; Y93.89 Activity, other specified; Z86.711 Personal history of pulmonary embolism; Y92.89 Other specified places as the place of occurrence of the external cause; Z86.718 Personal history of other venous thrombosis and embolism; Z90.49 Acquired absence of other specified parts of digestive tract; Z87.891 Personal history of nicotine dependence; Z95.0 Presence of cardiac pacemaker
CPT/HCPCS: 71020; 74000; 74230; 81050; 82271; 82436; 82570; 82962; 83735; 84100; 84132; 84133; 84134; 84145; 84156; 84300; 86162; 87081; 92507; 92523; 92526; 92611; 93005; 93970; 94640; 97110; 97116; 97150; 97163; 97166; 97530; 97535; 99366; J0456; J0696; J0885; J2250; J2543; J2704; J3010; J3370; J3475; J3480; J3490; J7030; J7050; J7060; Q0167

== ENCOUNTER → 2017-10-09 | Outpatient (CLI) | payer MEDICARE, OTHER ==
[~2017-10-09] VITALS: Ht 180.3 cm; Wt 75.2 kg
[~2017-10-09] MED LIST changes: -ACET-66 PO; -ALIS300T PO; +ASCO500 PO; -ASPI-825 PO; -CARV12 PO; -CHL25 PO; +DRON2.5C PO; +ENAL5 PO; +FERSL PO; +FLUT16H NASAL; -FOSI40TA2 PO; +LACT1POW8 MC; +LANS30 PO; -LORA10TA7 PO; +MIRT15 PO; -MOME17N NASAL; -OXYC-158 PO; -ROSU10 PO; +ZINC220 PO
[2017-10-09 09:10] VITALS: BP 139/77
== END | disposition home or self-care (01) ==
LOC: HBOWC 08:51
PROVIDERS: ATTEND Nurse Practitioner Adult Health
DX: S31.829D Unspecified open wound of left buttock, subsequent encounter (principal); I25.10 Atherosclerotic heart disease of native coronary artery without angina pectoris; K21.9 Gastro-esophageal reflux disease without esophagitis; E78.5 Hyperlipidemia, unspecified; F32.9 Major depressive disorder, single episode, unspecified; I48.91 Unspecified atrial fibrillation; E11.22 Type 2 diabetes mellitus with diabetic chronic kidney disease; I13.0 Hypertensive heart and chronic kidney disease with heart failure and stage 1 through stage 4 chronic kidney disease, or unspecified chronic kidney disease; N18.9 Chronic kidney disease, unspecified; I50.30 Unspecified diastolic (congestive) heart failure; F03.90 Unspecified dementia, unspecified severity, without behavioral disturbance, psychotic disturbance, mood disturbance, and anxiety; M19.90 Unspecified osteoarthritis, unspecified site; Z68.42 Body mass index [BMI] 45.0-49.9, adult; Z87.891 Personal history of nicotine dependence; Z86.718 Personal history of other venous thrombosis and embolism; Z86.711 Personal history of pulmonary embolism; Z90.49 Acquired absence of other specified parts of digestive tract; Z95.0 Presence of cardiac pacemaker; X58.XXXD Exposure to other specified factors, subsequent encounter
CPT/HCPCS: 11042

== ENCOUNTER → 2017-10-16 | Outpatient (CLI) | payer MEDICARE, OTHER ==
[~2017-10-16] MED LIST changes: +LIDOCAINE HCL 2% 5 ML JELLY TP ONE
[2017-10-16 13:44] VITALS: BP 107/64
== END | disposition home or self-care (01) ==
LOC: HBOWC 12:54
PROVIDERS: ATTEND Nurse Practitioner Adult Health
DX: S31.829D Unspecified open wound of left buttock, subsequent encounter (principal); I25.10 Atherosclerotic heart disease of native coronary artery without angina pectoris; K21.9 Gastro-esophageal reflux disease without esophagitis; E78.5 Hyperlipidemia, unspecified; F32.9 Major depressive disorder, single episode, unspecified; E11.22 Type 2 diabetes mellitus with diabetic chronic kidney disease; I13.0 Hypertensive heart and chronic kidney disease with heart failure and stage 1 through stage 4 chronic kidney disease, or unspecified chronic kidney disease; N18.9 Chronic kidney disease, unspecified; I50.30 Unspecified diastolic (congestive) heart failure; I48.91 Unspecified atrial fibrillation; F03.90 Unspecified dementia, unspecified severity, without behavioral disturbance, psychotic disturbance, mood disturbance, and anxiety; M19.90 Unspecified osteoarthritis, unspecified site; Z68.42 Body mass index [BMI] 45.0-49.9, adult; Z90.49 Acquired absence of other specified parts of digestive tract; Z87.891 Personal history of nicotine dependence; Z86.718 Personal history of other venous thrombosis and embolism; Z86.711 Personal history of pulmonary embolism; Z95.0 Presence of cardiac pacemaker; X58.XXXD Exposure to other specified factors, subsequent encounter
CPT/HCPCS: 11042

== ENCOUNTER → 2017-10-23 | Outpatient (CLI) | payer MEDICARE, OTHER ==
[~2017-10-23] MED LIST changes: -LIDOCAINE HCL 2% 5 ML JELLY TP ONE
[2017-10-23 13:40] VITALS: BP 89/39
[2017-10-23 13:50] VITALS: BP 89/46
== END | disposition home or self-care (01) ==
LOC: HBOWC 13:28
PROVIDERS: ATTEND Nurse Practitioner Adult Health
DX: S31.829D Unspecified open wound of left buttock, subsequent encounter (principal); I25.10 Atherosclerotic heart disease of native coronary artery without angina pectoris; E11.22 Type 2 diabetes mellitus with diabetic chronic kidney disease; I13.0 Hypertensive heart and chronic kidney disease with heart failure and stage 1 through stage 4 chronic kidney disease, or unspecified chronic kidney disease; N18.4 Chronic kidney disease, stage 4 (severe); I50.9 Heart failure, unspecified; E78.5 Hyperlipidemia, unspecified; F32.9 Major depressive disorder, single episode, unspecified; I48.91 Unspecified atrial fibrillation; F03.90 Unspecified dementia, unspecified severity, without behavioral disturbance, psychotic disturbance, mood disturbance, and anxiety; M19.90 Unspecified osteoarthritis, unspecified site; E44.0 Moderate protein-calorie malnutrition; X58.XXXD Exposure to other specified factors, subsequent encounter; Z86.718 Personal history of other venous thrombosis and embolism; Z95.0 Presence of cardiac pacemaker; Z87.891 Personal history of nicotine dependence
CPT/HCPCS: 11042

== ENCOUNTER → 2017-10-30 | Outpatient (CLI) | payer MEDICARE, OTHER ==
[2017-10-30 13:47] VITALS: BP 104/62
== END | disposition home or self-care (01) ==
LOC: HBOWC 13:25
PROVIDERS: ATTEND Nurse Practitioner Adult Health
DX: S31.829D Unspecified open wound of left buttock, subsequent encounter (principal); I25.10 Atherosclerotic heart disease of native coronary artery without angina pectoris; E11.22 Type 2 diabetes mellitus with diabetic chronic kidney disease; I13.0 Hypertensive heart and chronic kidney disease with heart failure and stage 1 through stage 4 chronic kidney disease, or unspecified chronic kidney disease; N18.4 Chronic kidney disease, stage 4 (severe); I50.9 Heart failure, unspecified; E78.5 Hyperlipidemia, unspecified; F32.9 Major depressive disorder, single episode, unspecified; E44.0 Moderate protein-calorie malnutrition; I48.91 Unspecified atrial fibrillation; F03.90 Unspecified dementia, unspecified severity, without behavioral disturbance, psychotic disturbance, mood disturbance, and anxiety; M19.90 Unspecified osteoarthritis, unspecified site; K21.9 Gastro-esophageal reflux disease without esophagitis; Z95.0 Presence of cardiac pacemaker; Z86.718 Personal history of other venous thrombosis and embolism; X58.XXXD Exposure to other specified factors, subsequent encounter
CPT/HCPCS: 11042

== ENCOUNTER → 2017-11-13 | Outpatient (CLI) | payer MEDICARE, OTHER ==
[2017-11-13 13:30] VITALS: BP 133/67
== END | disposition home or self-care (01) ==
LOC: HBOWC 13:35
PROVIDERS: ATTEND Nurse Practitioner Adult Health
DX: E11.622 Type 2 diabetes mellitus with other skin ulcer (principal); L98.411 Non-pressure chronic ulcer of buttock limited to breakdown of skin; I25.10 Atherosclerotic heart disease of native coronary artery without angina pectoris; K21.9 Gastro-esophageal reflux disease without esophagitis; E11.22 Type 2 diabetes mellitus with diabetic chronic kidney disease; I13.0 Hypertensive heart and chronic kidney disease with heart failure and stage 1 through stage 4 chronic kidney disease, or unspecified chronic kidney disease; N18.4 Chronic kidney disease, stage 4 (severe); I50.9 Heart failure, unspecified; F32.9 Major depressive disorder, single episode, unspecified; E78.5 Hyperlipidemia, unspecified; Z95.0 Presence of cardiac pacemaker; I48.91 Unspecified atrial fibrillation; F03.90 Unspecified dementia, unspecified severity, without behavioral disturbance, psychotic disturbance, mood disturbance, and anxiety; M19.90 Unspecified osteoarthritis, unspecified site; Z86.718 Personal history of other venous thrombosis and embolism; Z87.891 Personal history of nicotine dependence; Z90.49 Acquired absence of other specified parts of digestive tract; Z86.711 Personal history of pulmonary embolism
CPT/HCPCS: 11042

== ENCOUNTER → 2017-11-20 | Outpatient (CLI) | payer MEDICARE, OTHER ==
[~2017-11-20] MED LIST changes: -DRON2.5C PO; +DRON2.5C14 PO
[2017-11-20 13:40] VITALS: BP 90/58
[2017-11-20 14:59] VITALS: BP 90/58
== END | disposition home or self-care (01) ==
LOC: HBOWC 13:00
PROVIDERS: ATTEND Nurse Practitioner Adult Health
DX: S31.829D Unspecified open wound of left buttock, subsequent encounter (principal); I25.10 Atherosclerotic heart disease of native coronary artery without angina pectoris; E11.22 Type 2 diabetes mellitus with diabetic chronic kidney disease; I13.0 Hypertensive heart and chronic kidney disease with heart failure and stage 1 through stage 4 chronic kidney disease, or unspecified chronic kidney disease; N18.4 Chronic kidney disease, stage 4 (severe); I50.9 Heart failure, unspecified; F32.9 Major depressive disorder, single episode, unspecified; E78.5 Hyperlipidemia, unspecified; I48.91 Unspecified atrial fibrillation; M19.90 Unspecified osteoarthritis, unspecified site; E44.0 Moderate protein-calorie malnutrition; Z87.891 Personal history of nicotine dependence; Z86.718 Personal history of other venous thrombosis and embolism; Z86.711 Personal history of pulmonary embolism; Z95.0 Presence of cardiac pacemaker; X58.XXXD Exposure to other specified factors, subsequent encounter
CPT/HCPCS: 11042

== ENCOUNTER → 2017-11-27 | Outpatient (CLI) | payer MEDICARE, OTHER ==
[2017-11-27 14:16] VITALS: BP 88/62
[2017-11-27 14:41] VITALS: BP 107/73
== END | disposition home or self-care (01) ==
LOC: HBOWC 12:57
PROVIDERS: ATTEND Nurse Practitioner Adult Health
DX: S31.829D Unspecified open wound of left buttock, subsequent encounter (principal); I25.10 Atherosclerotic heart disease of native coronary artery without angina pectoris; E78.5 Hyperlipidemia, unspecified; F32.9 Major depressive disorder, single episode, unspecified; K21.9 Gastro-esophageal reflux disease without esophagitis; E11.22 Type 2 diabetes mellitus with diabetic chronic kidney disease; I13.0 Hypertensive heart and chronic kidney disease with heart failure and stage 1 through stage 4 chronic kidney disease, or unspecified chronic kidney disease; I50.30 Unspecified diastolic (congestive) heart failure; N18.4 Chronic kidney disease, stage 4 (severe); I48.91 Unspecified atrial fibrillation; M19.90 Unspecified osteoarthritis, unspecified site; F03.90 Unspecified dementia, unspecified severity, without behavioral disturbance, psychotic disturbance, mood disturbance, and anxiety; Z90.49 Acquired absence of other specified parts of digestive tract; Z95.0 Presence of cardiac pacemaker; Z86.718 Personal history of other venous thrombosis and embolism; Z86.711 Personal history of pulmonary embolism; Z87.891 Personal history of nicotine dependence; X58.XXXD Exposure to other specified factors, subsequent encounter

== ENCOUNTER → 2017-12-31 | Outpatient (CLI) | payer MEDICARE, OTHER ==
[~2017-12-31] VITALS: Ht 180.3 cm; Wt 80.0 kg
[~2017-12-31] MED LIST changes: +CARV25 PO; +MULT-1259 PO
[2017-12-31 09:44] VITALS: BP 111/70
== END | disposition home or self-care (01) ==
LOC: SRCNTR 09:33
PROVIDERS: ATTEND Internal Medicine Cardiovascular Disease
DX: Z45.018 Encounter for adjustment and management of other part of cardiac pacemaker (principal)
CPT/HCPCS: G0463

== ENCOUNTER → 2018-02-25 | Outpatient (CLI) | payer MEDICARE, OTHER ==
[~2018-02-25] VITALS: Ht 180.3 cm; Wt 79.0 kg
[~2018-02-25] MED LIST changes: -DRON2.5C14 PO; -LACT1POW8 MC; -LANS30 PO; -MIRT15 PO; -ZINC220 PO
[2018-02-25 10:13] VITALS: BP 156/92
== END | disposition home or self-care (01) ==
LOC: SRCNTR 10:12
PROVIDERS: ATTEND Internal Medicine Cardiovascular Disease
DX: I11.9 Hypertensive heart disease without heart failure (principal); I48.0 Paroxysmal atrial fibrillation; Z79.01 Long term (current) use of anticoagulants; Z85.038 Personal history of other malignant neoplasm of large intestine; Z90.49 Acquired absence of other specified parts of digestive tract; Z95.0 Presence of cardiac pacemaker; Z98.890 Other specified postprocedural states
CPT/HCPCS: G0463

== ENCOUNTER → 2018-05-05 | Outpatient (CLI) | payer MEDICARE, OTHER ==
[~2018-05-05] VITALS: Ht 180.3 cm; Wt 69.5 kg
[~2018-05-05] MED LIST changes: +APIX5TAB PO
[2018-05-05 10:17] VITALS: BP 102/64
== END | disposition home or self-care (01) ==
LOC: SRCNTR 09:59
PROVIDERS: ATTEND Internal Medicine Cardiovascular Disease
DX: I11.0 Hypertensive heart disease with heart failure (principal); I50.9 Heart failure, unspecified; I25.10 Atherosclerotic heart disease of native coronary artery without angina pectoris; M10.9 Gout, unspecified; I49.9 Cardiac arrhythmia, unspecified; I45.10 Unspecified right bundle-branch block; Z86.73 Personal history of transient ischemic attack (TIA), and cerebral infarction without residual deficits; Z95.0 Presence of cardiac pacemaker
CPT/HCPCS: G0463

== ENCOUNTER → 2018-06-25 | Outpatient (CLI) | payer MEDICARE, OTHER ==
[~2018-06-25] VITALS: Ht 180.3 cm; Wt 76.0 kg
[2018-06-25 11:26] VITALS: BP 106/71
== END | disposition home or self-care (01) ==
LOC: SRCNTR 11:14
PROVIDERS: ATTEND Internal Medicine Cardiovascular Disease
DX: I48.0 Paroxysmal atrial fibrillation (principal); I11.0 Hypertensive heart disease with heart failure; I50.9 Heart failure, unspecified; Z85.038 Personal history of other malignant neoplasm of large intestine; Z95.0 Presence of cardiac pacemaker
CPT/HCPCS: G0463

== ENCOUNTER → 2021-01-19 | Outpatient (CLI) | payer MEDICARE, OTHER ==
[~2021-01-19] MED LIST changes: +ALLO100T2 PO; -ENAL5 PO; +ENAL5TAB17 PO
== END | disposition home or self-care (01) ==
LOC: CARDPV 09:26
PROVIDERS: ATTEND Internal Medicine Cardiovascular Disease
DX: I08.3 Combined rheumatic disorders of mitral, aortic and tricuspid valves (principal); I48.0 Paroxysmal atrial fibrillation; I11.9 Hypertensive heart disease without heart failure; R01.1 Cardiac murmur, unspecified
CPT/HCPCS: 93005; 93306